=== PATIENT | male | born 1950 | race Caucasian/White ===

== ENCOUNTER → 2017-05-20 | Outpatient (CLI) | payer MEDICARE, OTHER ==
[~2017-05-20] MED LIST: ACE325; ASPI-1441; BACDS PO; CAR6.25 PO; CLOP75TA PO; DOC100; FAMO10TA86; HYDR-2966 PO; ISOS20TA64 PO; LISI-357 PO; PANT40TA65 PO; PER; POTA-53 PO; PRAS10TA4; SIL20T TOP; SIMV-54 PO
[2017-05-20 12:53] LABS: LDL CHOLESTEROL 44 mg/dl
== END ==
LOC: LAB 11:55
PROVIDERS: ATTEND Internal Medicine Cardiovascular Disease
DX: I25.10 Atherosclerotic heart disease of native coronary artery without angina pectoris (principal)
CPT/HCPCS: 36415; 82040; 82247; 82248; 82310; 82374; 82435; 82465; 82565; 82947; 83718; 84075; 84132; 84155; 84295; 84450; 84460; 84478; 84520

== ENCOUNTER → 2017-05-22 | Outpatient (CLI) | payer MEDICARE, OTHER ==
--- NOTE | 2017-05-23 18:12 | RADIOLOGY IMAGING REPORT ---
FACILITY: [facility] PATIENT NAME: ERVIN MARIEE : [id number] MR: [id number] V: [id number] EXAM DATE: ORDERING PHYSICIAN: PAMELA ROBERSON TECHNOLOGIST: Aziza Hernandez EXAMINATION:TWO-DIMENSIONAL ECHOCARDIOGRAPH`1 REASON:CAD 2D Measurements (normal values in centimeters) LV endLV endRV endVent.LV PostAorticLeftPercent DiastolicSystolicDiastolicSeptumWallRootAtriumShortening (3.5-5.7)(0.9-2.6)(0.6-1.1)(0.6-1.1)(2.0-3.7)(1.9-4.0)(25-35%) [id number] STROKE VOLUME: 47.8ml ESTIMATED EJECTION FRACTION:70% PARASTERNAL LONG AXIS: Overall left ventricular systolic function does appear to be normal. Mild concentric left ventricular thickening is noted but no evidence for any outflow obstruction. Color examination of the valves reveals a trace of aortic insufficiency as well as a trace of mitral insufficiency present. No wall motion abnormalities are noted. PARASTERNAL SHORT AXIS: Overall left ventricular function appears to be normal with no wall motion abnormalities. Mild concentric left ventricular thickening but no evidence for any outflow obstruction. The aortic valve is trileaflet in configuration & appears to open normally. It has minimal aortic sclerosis. Color examination of the valves reveals a trace of aortic insufficiency & a trace of tricuspid insufficiency present. APICAL FOUR AND TWO CHAMBER: Normal left ventricular ejection fraction. Right ventricle also appears to contract normally & the TAPSE is measured at 2.5 which is within normal ranges. Aortic valve area & mitral valve area both measure within normal ranges at 4.7 & 3.0cm2 respectively. Left atrial & right atrial volumes measure within normal ranges at 30 & 17ml/m2. Trace of mitral insufficiency is noted. A trace of tricuspid insufficiency is noted. The tricuspid regurgitation Vmax is measured at 2.1m/sec. Estimated right atrial pressure is 8mm Hg. SUBCOSTAL VIEW: No pericardial effusion was noted. No atrioseptal or ventriculoseptal defects were appreciated. The ascending aorta is slightly enlarged at 4.2cm. Doppler examination of the mitral valve in diastole does reveal the A wave > E wave. OVERALL IMPRESSION: 1. Normal left ventricular ejection fraction of 70% with a Grade 1/4 decrease in diastolic function. 2. Mild concentric left ventricular thickening with no evidence for any outflow tract obstruction. 3. Chamber sizes are normal. The right ventricle is the upper range of normal in size. The ascending aorta is slightly aneurismal at 4.2cm. 4. A trileaflet aortic valve with mild aortic sclerosis but no stenosis & a trace of aortic insufficiency. 5. A trace of mitral & tricuspid insufficiency. No stenosis of the valves was noted. Estimated right ventricular systolic pressure is within normal range at 26mm Hg. 6. No wall motion abnormalities were noted & the right ventricle also appears to contract normally with a normal TAPSE measurement. Dictated by: Samara Shine M.D. on 05/22/2017 at 20:32 Transcribed by: DAREK on 05/23/2017 at 11:17 Approved by: Samara Shine M.D. on 05/23/2017 at 18:10 [facility]
== END ==
LOC: RAD 00:40
PROVIDERS: ATTEND Internal Medicine Cardiovascular Disease
DX: I50.31 Acute diastolic (congestive) heart failure (principal); I25.10 Atherosclerotic heart disease of native coronary artery without angina pectoris; I35.1 Nonrheumatic aortic (valve) insufficiency; I34.0 Nonrheumatic mitral (valve) insufficiency; I07.1 Rheumatic tricuspid insufficiency
CPT/HCPCS: 93306

== ENCOUNTER → 2017-06-02 | Outpatient (CLI) | payer MEDICARE, OTHER ==
[~2017-06-02] MED LIST changes: +IOPAMIDOL 76% 100 ML INFUS BTL 100 ML ONE; +NS 0.9% 20 ML SDV 60 ML ONE
--- NOTE | 2017-06-02 11:53 | RADIOLOGY IMAGING REPORT ---
FACILITY: [facility] PATIENT NAME: Kenny Garcia : 1950 MR: [id number] V: [id number] EXAM DATE: ORDERING PHYSICIAN: PAMELA ROBERSON TECHNOLOGIST: Location: [facility] [place] Patient: Kenny Garcia : 1950 Visit/Account:[id number] Date of Sevice: 06/02/2017 CTA CHEST ABD W WO CONT CTA of the chest with and without contrast: COMPARISONS: None. ADDITIONAL PERTINENT HISTORY: Thoracic aortic aneurysm without rupture TECHNIQUE: Multiple axial images are obtained from the lung apices through the upper abdomen during t he IV administration of contrast material. 2-D and 3-D reformatted images were obtained off the axial source data. One of the following dose optimization techniques was utilized in the performance of t his exam: Automated exposure control; adjustment of the mA and/or kV according to the patient's size; or use of an iterative reconstruction technique. Specific details can be referenced in the [facility]'s radiology CT exam operational policy. CONTRAST: 100mL of Isovue-370 FINDINGS: Lung parenchyma: Negative. Pleural spaces: Negative. Heart, mediastinum and marlin: Negative. Cardiopulmonary vasculature: There is mild aneurysmal dilatation of the ascending aorta measuring 4.1 x 4.4 cm. No aneurysmal dilatation of the thoracic aortic arch or the descending thoracic aorta. C alcified atherosclerotic plaque involving the thoracic aorta. No significant narrowing at the origin s of the great vessels. Central airways: Negative Thyroid, supra- clavicular, axillary regions: Negative. Surrounding soft tissues: Negative. Osseous structures: Spondylitic change involving the thoracic spine. No acute appearing bony abnorma lities. IMPRESSION: 1. Mild aneurysmal dilatation involving the ascending aorta. 2. Mild atherosclerotic disease involving the thoracic aortic arch and descending thoracic aorta wit hout aneurysm in these regions. 3. No acute intrathoracic process. CTA ABD W WO CONT COMPARISON: None. ADDITIONAL PERTINENT HISTORY: Thoracic aortic aneurysm Technique: Multiple axial images were obtained from the lung bases through the iliac crest before and after the IV administration of IV contrast. Study was optimized for evaluation of the abdominal aor ta. 2-D and 3-D reformatted images were obtained off the axial source data. One of the following do se optimization techniques was utilized in the performance of this exam: Automated exposure control; adjustment of the mA and/or kV according to the patient's size; or use of an iterative reconstructio n technique. Specific details can be referenced in the facility's radiology CT exam operational lorrie cy. Contrast: 100 ml of Isovue-370 FINDINGS: Lung bases: Negative. Free air and free fluid: None. Liver: Fatty infiltration of the liver. Within the left lobe of the liver there are 2 low-attenuatio n regions more anterior region measuring 2.5 x 2.9 cm. The more posterior region measures 1.9 x 2.0 cm. These may represent underlying hemangiomas or simple cysts. Spleen: Negative. Kidneys and proximal ureters: Mild nonspecific stranding about both kidneys. Small simple appearing cyst involving the midportion of the right kidney. Region of calcification along the posterior mumtaz n of the lower pole of the right kidney may represent a small previous hematoma. This has benign cynthia racteristics. Adrenal glands: Negative. Pancreas: Negative. Gallbladder: Findings of small partially calcified gallstones near the fundus of the gallbladder. Visualized bowel and mesentery: Negative.. Lymph node assessment: Negative. Retroperitoneum: Negative. Abdominal vasculature: Mild calcified and noncalcified apices right plaque of the abdominal aorta as well as calcified referenced right plaque at the origins of the renal arteries and along the proximal portions of the superior mesenteric artery and the celiac artery. No significant stenosis noted. N o aneurysmal dilatation of the a dominal aorta. Surrounding soft tissues: Negative. Osseous structures: Mild spondylitic change involving the thoracolumbar spine. No acute appearing daniela ny abnormalities. IMPRESSION:1. Atherosclerotic disease of the abdominal aorta and its major branches. 2. No significant aneurysmal dilatation noted along the abdominal aorta. 3. Underlying cholelithiasis without CT evidence of acute cholecystitis. 4. Fatty infiltration of the liver with findings of either hemangiomas or simple appearing cysts inv olving the left lobe of the liver. Report Dictated By: Red Dhillon MD at 06/02/2017 11:34 AM Report E-Signed By: Red Dhillon MD at 06/02/2017 11:49 AM WSN:[email or web address]
== END ==
LOC: RAD 02:35
PROVIDERS: ATTEND Internal Medicine Cardiovascular Disease
DX: I71.2 Thoracic aortic aneurysm, without rupture (principal); I70.0 Atherosclerosis of aorta; K80.20 Calculus of gallbladder without cholecystitis without obstruction; K76.0 Fatty (change of) liver, not elsewhere classified
CPT/HCPCS: 71275; 74175; J7050; Q9967

== ENCOUNTER 2017-09-03 00:11 | Inpatient (IN) | payer OTHER, MEDICARE ==
[2017-08-21 11:30] LABS: PLATELET COUNT, AUTOMATED 148 K/uL (150-450)
--- NOTE | 2017-08-21 11:36 | EKG ---
FACILITY: [facility] - [place] PATIENT NAME: ERVIN MARIEE : [id number] MR: [id number] V: [id number] EXAM DATE: ORDERING PHYSICIAN: SHANTHI WONG TECHNOLOGIST: ROXY Purcell Reason : PREOP-BACK Blood Pressure : / mmHG Vent. Rate : 060 BPM Atrial Rate : 060 BPM P-R Int : 208 ms QRS Dur : 084 ms QT Int : 452 ms P-R-T Axes : 025 068 048 degrees QTc Int : 452 ms Normal sinus rhythm Normal ECG When compared with ECG of 09-JAN-2014 17:34, Nonspecific T wave abnormality no longer evident in Inferior leads Confirmed by SHANTHI ZIMMER ([id number]) on 08/22/2017 11:22:49 AM Referred By: AZALEA Confirmed By:SHANTHI ZIMMER
[~2017-09-03] VITALS: Ht 180.3 cm; Wt 87.1 kg
[~2017-09-03 00:11] MED LIST changes: +ASPI-757 PO; +ATOR20TA65 PO; +CELE-1 PO; +ESOM40CA42 PO; +GABA-549 PO; -IOPAMIDOL 76% 100 ML INFUS BTL 100 ML ONE; -NS 0.9% 20 ML SDV 60 ML ONE
[2017-09-03 05:40] VITALS: BP 136/87
[2017-09-03] MEDS ORDERED: DIAZEPAM 10 MG TAB PO ONE (05:45)
[2017-09-03] MEDS: GABAPENTIN 300 MG CAP PO ONE ×2 (06:22→06:31)
[2017-09-03] MEDS ORDERED: REMIFENTANIL HCL 1 MG VIAL ONE ×2 (06:23→08:37)
[2017-09-03] MEDS ORDERED: HYDROmorphone HCL 2 MG/ML SDV ONE ×2 (09:02→10:42)
[2017-09-03] MEDS ORDERED: ONDANSETRON 4 MG/2 ML VIAL ONE (09:06)
[2017-09-03] MEDS ORDERED: DEXAMETHASONE SOD PHOS 10MG/ML ONE (09:06)
[2017-09-03] MEDS ORDERED: SUCCINYLCHOL CHL 200MG/10ML VL ONE (09:06)
[2017-09-03] MEDS ORDERED: PROPOFOL EMUL(*) 10MG/ML 20 ML 180 ML ONE (09:06)
[2017-09-03] MEDS ORDERED: PHENYLEPHRINE 10 MG/1 ML VIAL ONE (09:06)
[2017-09-03] MEDS ORDERED: LIDOCAINE MPF 1% 5 ML VIAL ONE (09:06)
[2017-09-03] MEDS ORDERED: GLYCOPYRROLATE 0.2MG/ML 1 ML INJ ONE (09:06)
[2017-09-03] MEDS ORDERED: fentaNYL CITR 100 MCG/2 ML AMP ONE ×2 (09:47→10:03)
[2017-09-03] MEDS ORDERED: fentaNYL CITR 250 MCG/5 ML AMP ONE (10:08)
[2017-09-03] MEDS ORDERED: ACETAMINOPHEN(*)1000 MG/100 ML 100 ML IVPB PRN (10:20)
[2017-09-03] MEDS ORDERED: ceFAZolin(*) 2GM/D5W 50ML 50 ML IVPB ONE (10:20)
[2017-09-03] MEDS ORDERED: LR(*) 1000 ML BAG 1,000 ML IV PRN (10:20)
[2017-09-03] MEDS ORDERED: ONDANSETRON 4 MG/2 ML VIAL IVP PRN (10:20)
[2017-09-03] MEDS ORDERED: DIAZEPAM 5 MG TAB PO PRN (10:20)
[2017-09-03] MEDS ORDERED: diphenhydrAMINE 25 MG CAP PO PRN (10:20)
[2017-09-03] MEDS ORDERED: BISACODYL 10 MG SUPP PR PRN (10:20)
[2017-09-03] MEDS ORDERED: BENZOCAINE/MENTHOL 1 EACH LOZG PO PRN (10:20)
[2017-09-03] MEDS ORDERED: MAGNESIUM HYDROXIDE* 30ML UDCP PO PRN (10:20)
[2017-09-03] MEDS ORDERED: ACETAMINOPHEN 500 MG TAB PO PRN (10:20)
[2017-09-03] MEDS ORDERED: FLUSH 10 ML SYR IVP PRN (10:20)
--- NOTE | 2017-09-03 10:22 | RADIOLOGY IMAGING REPORT ---
FACILITY: [facility] PATIENT NAME: Kenny Garcia : 1950 MR: [id number] V: [id number] EXAM DATE: ORDERING PHYSICIAN: MICHELLE TRISTAN TECHNOLOGIST: Location: [facility] [place] Patient: Kenny Garcia : 1950 Visit/Account:[id number] Date of Sevice: 09/03/2017 Lumbar spine, nine views. HISTORY: L4-5 disc herniation, fusion. COMPARISON: Lumbar spine CT scan 08/20/2016. The lowest segmented vertebra is designated L5. Several images demonstrate an interspinous metal pro sthesis at L5-S1. Other images demonstrate placement pedicular screws at L4 and L5. The tips of the screws project on the L4 and L5 vertebral bodies. Other image demonstrates the tip of a metal instr ument at L4-5. Other images demonstrate placement of an interbody metal prosthesis at L4-5. A dilip ectomy is present at L4-5. Small to moderate-sized endplate osteophytes and moderate to severe loss of disc height are present at L3-4, L4-5, and L5-S1. The abdominal aorta and iliac arteries are calc ified and mildly ectatic. FLUOROSCOPY TIME: 121 seconds. IMPRESSION: Metal hardware placement as described above. Report Dictated By: Bhavesh Dwyer MD at 09/03/2017 10:12 AM Report E-Signed By: Bhavesh Dwyer MD at 09/03/2017 10:17 AM WSN:[email or web address]
[2017-09-03] MEDS ORDERED: ePHEDrine 25 MG/5 ML DISP.SYR IVP ONE (10:42)
[2017-09-03] MEDS ORDERED: NORMOSOL R SOLN(*) 1000 ML BAG 1,000 ML IV PRN (11:20)
[2017-09-03] MEDS ORDERED: LIDOCAINE/SOD BICARB 8.4% SYR ID ONE (11:20)
[2017-09-03] MEDS ORDERED: MIDAZOLAM 2 MG/2 ML VIAL IVP PRN (11:20)
[2017-09-03 11:32] VITALS: BP 94/67
[2017-09-03 11:39] VITALS: BP 95/66
[2017-09-03] MEDS: oxyCODONE HCL 5 MG CAP PO PRN ×4 (11:48→20:41)
[2017-09-03] MEDS ORDERED: ATOR40TA69 PO (12:11)
[2017-09-03] MEDS ORDERED: GABA-551 PO (12:11)
[2017-09-03] MEDS ORDERED: LISI20TA29 PO (12:11)
[2017-09-03] MEDS: HYDROmorphone HCL 2 MG/ML SDV IVP PRN ×3 (12:22→17:07)
--- NOTE | 2017-09-03 12:39 | Hospitalist Consultation ---
History of Present Illness Requesting Physician Dr. Ratliff Reason for Consult Medical Management Chief Complaint s/p lumbar fusion History of Present Illness He was admitted s/p lumbar fusion. It is reported the surgery went well and without complication. History Problems: (1) Hypertension Status: Chronic (2) Hyperlipidemia Status: Chronic (3) CAD (coronary artery disease) Status: Chronic (4) ME (myocardial infarction) Home Meds Reported Medications Atorvastatin Calcium (ATORVASTATIN CALCIUM) 40 Mg Tablet, 1 TAB PO QDAY, TAB 09/03/17 Lisinopril (LISINOPRIL) 20 Mg Tablet, 20 MG PO QDAY, TAB 09/03/17 Gabapentin (GABAPENTIN) 400 Mg Capsule, 400 MG PO TID, CAPSULE 09/03/17 Aspirin (ASPIRIN) 325 Mg Tablet, 0.5 TAB PO QDAY, TAB 08/26/17 Esomeprazole Magnesium (NEXIUM) 40 Mg Capsule.dr, 1 CAP PO QAM, CAP 08/26/17 Celecoxib (CELEBREX) 200 Mg Capsule, 200 MG PO QDAY, CAPSULE 08/26/17 Clopidogrel Bisulfate (CLOPIDOGREL) 75 Mg Tablet, 1 TAB PO QDAY, TAB TAKE ONE TABLET BY MOUTH EVERY DAY 01/09/14 Hydrochlorothiazide (HYDROCHLOROTHIAZIDE) 25 Mg Tablet, 0.5 TAB PO QDAY TAKE ONE TABLET BY MOUTH EVERY DAY 01/09/14 Isosorbide Mononitrate (ISOSORBIDE MONONITRATE) 20 Mg Tablet, 30 MG PO DAILY 01/09/14 Oxycodone/Acetaminophen (OXYCODONE/ACETAMINOPHEN 5MG/325 MG) 5 Mg/325 Mg Tab, 7.5 MG QID 07/16/11 Carvedilol (Coreg) 6.25 Mg Tab, 12.5 MG PO BID 07/16/11 Discontinued Reported Medications Atorvastatin Calcium (ATORVASTATIN CALCIUM) 20 Mg Tablet, 1 TAB PO QDAY, TAB 08/26/17 Gabapentin (GABAPENTIN) 300 Mg Capsule, 400 MG PO TID, CAPSULE 08/26/17 Simvastatin (SIMVASTATIN) 40 Mg Tablet, 40 MG PO HS, TAB 01/09/14 Lisinopril (Lisinopril) 5 Mg Tablet, 20 MG PO DAILY 07/16/11 Allergies: Coded Allergies: No Known Allergies (Verified Allergy, Mild, 08/20/16) zolpidem (Verified Adverse Reaction, Mild, SLEEP WALKS, 08/26/17) Patient History: FH: heart disease MOTHER Hx Smoking: No (CHEWS 1 CAN EVERY 6-7 DAYS) Smoking Status: Never Smoker Caffeine Intake: Coffee Caffeine/Cups Per Day: 2 CPD Hx Alcohol Use: Yes (NIGHTLY DRINK) Alcohol Used: Liquor Hx Substance Use Disorder: No Social Drug Use: Never Review of Systems All Systems Reviewed/Normal: Yes, Except as Noted Musculoskeletal: Pain (back pain from surgery) Exam Vital Signs Vital Signs Date Time Temp Pulse Resp B/P (MAP) Pulse Ox O2 Delivery O2 Flow Rate FiO2 09/03/17 11:39 18 95/66 (76) 90 Nasal Cannula 2.0 09/03/17 11:32 97.1 58 General Appearance: Alert, Awake, No Acute Distress, Afebrile Neuro: No Gross deficits Cardiovascular: Regular Rate and Rhythm Respiratory: No Respiratory Distress, Clear to Auscultation GI: Abd Soft and Non-Tender Psych: Alert & Oriented X3, Appropriate Mood & Affect Assessment and Plan Problems: (1) S/P lumbar fusion Status: Acute Assessment & Plan: Followed by Dr. Ratliff. (2) Hypertension Status: Chronic Assessment & Plan: He is on chronic treatment with Lisinopril, Hydrochlorothiazide, and Coreg. The lisinopril and coreg have been restarted with hold parameters. (3) Hyperlipidemia Status: Chronic Assessment & Plan: He is on chronic treatment with Atorvastatin. (4) CAD (coronary artery disease) Status: Chronic Assessment & Plan: He has a history of two cardiac stents. He is on chronic treatment with Imdur, Plavix, and Aspirin. He did stop his Plavix 10 prior to surgery, but he did continue Aspirin. We will continue to hold Plavix, until we get approval from Dr. Ratliff to restart. We will continue Aspirin and Imdur. Venous Thromboembolism Antithrombotics Is Pt On Any Antithrombotics?: No Problem Qualifiers (1) Hypertension: Hypertension type: essential hypertension Qualified Codes: I10 - Essential ( primary) hypertension SELMA ENGLE MATERIALS MANAGEMENT SUPERVISOR September 03, 2017 12:39
[2017-09-03] MEDS: GABAPENTIN(*) 300 MG CAP 300 MG, GABAPENTIN(*) 100 MG CAP 100 MG PO SCH ×2 (13:54→20:43)
[2017-09-03] MEDS ORDERED: NON-FORMULARY MEDICATION MISCELL (Gabapentin 400 MG) PO SCH (14:00)
--- NOTE | 2017-09-03 14:22 | OPERATIVE REPORT 1 ---
EVENT DATE: September 03, 2017 SURGEON: Jf Ratliff MD ANESTHESIOLOGIST: Altagracia Barrios MD ANESTHESIA: General endotracheal VALIDATION MANAGER: MELODY Castle PREOPERATIVE DIAGNOSIS Right L4 radiculopathy with L4-L5 spinal stenosis and L4-L5 foraminal stenosis. POSTOPERATIVE DIAGNOSIS Right L4 radiculopathy with L4-L5 spinal stenosis and L4-L5 foraminal stenosis. PROCEDURE PERFORMED L4-L5 minimally invasive transforaminal lumbar interbody fusion. IV FLUIDS 2100 mL. ESTIMATED BLOOD LOSS 60 mL. IMPLANTS 6.5 mm x 45 mm Reline pedicle screws from [employer] x four. 5.5 mm x 45 mm lordotic Prevent rods from [employer] x two, 5.5 mm locking screws from [employer] x four and an 11 mm x 35 mm curvilinear 10 mm tall lordotic interbody implant from [employer]. SPECIMENS None. DRAINS None. COMPLICATIONS None. DISPOSITION Postanesthesia care unit. INDICATIONS FOR SURGERY Mr. Garcia is a 67-year-old gentleman who presented to my clinic with a long history of back problems. He had undergone placement of CoFlex devices at L4- L5 and L5-S1 in the past and had some improvement with those. Ultimately, however, they removed the CoFlex device at L4-L5 and performed a laminectomy. He had some relief but then had a return of significant L4 distribution radiating pain, numbness and tingling as well as weakness in the right lower extremity. He failed physical therapy and medications and ultimately underwent a right L4 nerve root injection, which gave him excellent, albeit temporary relief. His physical examination was normal, but he had an MRI that showed severe foraminal stenosis, right greater than left, at the L4-L5 level. Secondary to ongoing symptoms and failure nonsurgical treatment, Mr. Garcia was offered a right-sided approach, L4-L5 minimally invasive transforaminal lumbar interbody fusion to open up the foramen and decompress that L4 nerve root on the right. Prior to surgery, Mr. Garcia was advised of potential medical and surgical complications relating to surgery. These include bleeding, infection, damage to surrounding structures, persistent and/or worsening pain, nerve root injury, spinal fluid leak, infection, meningitis, , blindness, sexual dysfunction, autonomic nervous system dysfunction and other unforeseen medical and surgical complications. An understanding that spinal surgery is more predictive at improving extremity discomfort than axial spine pain was stressed. DESCRIPTION OF PROCEDURE On the date of surgery, the patient was met in the preoperative hold area, and all questions were answered. The operative site was identified and marked by myself. The patient was brought in good condition to the operating room, and after succumbing to anesthesia, was placed in the prone position on the Leeroy table. All bony protuberances and soft tissues were well padded in the standard fashion. Care was taken to maintain appropriate perfusion pressures during anesthesia. Preoperative antibiotics were administered according to the appropriate timing schedule. At the conclusion of the procedure, sponge and needle count were correct x two. Final time out was undertaken by members of the operating team to confirm correct patient, correct levels and correct surgery. The fluoroscopy unit was used to sendy the lateral borders of the L4 and L5 pedicles as well as the midpoint of those pedicles in the axial plane. The skin was then prepped and draped in the standard sterile orthopedic fashion. Incisions were made in the paramedian lower back for Adelita style approaches bilaterally. Sharp dissection was taken down to the lumbodorsal fascia, which was slit longitudinally. Blunt dissection was then carried out, splitting the interval between longissimus and multifidus muscles bilaterally, and coming down upon the appropriate points for starting the pedicle screws. Under fluoroscopic guidance, percutaneous pedicle screw placement was performed. Jamshidi needles were placed at the 9 o'clock position on the left side, and at the 3 o'clock position on the right side. They were then advanced through the pedicles under fluoroscopic guidance bilaterally. The trocars were withdrawn, and the guidewires were then placed. AP and lateral views confirmed appropriate placement of guidewires in bilateral pedicles at L4 and L5. Under lateral fluoroscopic guidance, we then tapped all four pedicles and tested the taps with neurophysiologic monitoring. They all tested above 10 mA. We then placed 6.5 mm x 45 mm screws with towers on the left, and with 60 mm retractors blades on the right. Screws were tested and found to all test much higher, all testing higher than 20 mA. The wires were all withdrawn, and attention was turned to the facetectomy. The self-retaining retractor was distracted on the right side, and the medial blade placed. This afforded us acces to the facet joint on that side as well as the L4 lamina. Facetectomy was performed utilizing an osteotome to provide us access to the transforaminal space. Care was taken to avoid osteotomizing the pedicle above or below. Hemostasis was obtained using bipolar cautery, and the disk space was identified. An annulotomy was performed with the annulotomy knife, and then a discectomy was performed using a combination of curettes, ashly and pituitary rongeurs to clear the disk space and the end plates of all disk and cartilaginous remnant. Once this was accomplished, a 10 mm trial was inserted and found to be the correct size. Under fluoroscopic guidance we then placed a combination of cancellous chips and demineralized bone matrix in the anterior disk space, and then inserted a 10 mm x 35 mm x 11 mm lordotic interbody implant into the interspace. This was rotated into perfect position, and AP and lateral views confirmed excellent positioning of the interbody device. Self retaining retractor was then removed, and the wounds irrigated with copious sterile saline solution. The caliper was used to measure the distance between the screw heads, and ultimately we chose 45 mm long rods. Retractor blades were removed from the screw shanks on the right and towers placed. Percutaneous technique was used to place the connecting rods, and then the locking caps were applied. The superior locking caps were tightened, and compression was applied across the construct bilaterally prior to tightening the L5 locking cap. Final tightening device was then used with the counter torque instrument to final tighten all locking caps. The towers were then removed, and AP and lateral images were obtained showing excellent positioning of all of the instrumentation. The wounds were again irrigated with copious sterile saline solution and then closed using interrupted sutures for the deep fascia and inverted interrupted sutures for the subcutaneous tissue, and then a running subcuticular skin stitch. Sponge and needle counts were correct x two. POSTOPERATIVE CARE PLAN Mr. Garcia will remain in the hospital until he meets discharge criteria. He could go home as soon as today, but will likely stay one night prior to discharge home. He will follow up in my clinic in two weeks time for wound check and examination. RODRIGO
[2017-09-03] MEDS: ceFAZolin(*) 2GM/D5W 50ML 50 ML IVPB SCH ×2 (16:50→22:32)
[2017-09-03 19:40] VITALS: BP 117/70
[2017-09-03] MEDS: CARVEDILOL 6.25 MG TAB PO SCH (20:42)
[2017-09-03] MEDS: DOCUSATE SODIUM 100 MG CAP PO SCH (20:43)
[2017-09-03 22:36] VITALS: BP 128/84
[2017-09-03] MEDS: APAP/HYDROCODONE 325/5 TAB PO PRN (22:41)
[2017-09-04] MEDS: APAP/HYDROCODONE 325/5 TAB PO PRN ×2 (03:25→08:11)
[2017-09-04] MEDS: ceFAZolin(*) 2GM/D5W 50ML 50 ML IVPB SCH (06:22)
[2017-09-04] MEDS: CARVEDILOL 6.25 MG TAB PO SCH (08:09)
[2017-09-04 08:10] VITALS: BP 138/87
[2017-09-04] MEDS: DOCUSATE SODIUM 100 MG CAP PO SCH (08:10)
[2017-09-04] MEDS: GABAPENTIN(*) 300 MG CAP 300 MG, GABAPENTIN(*) 100 MG CAP 100 MG PO SCH (08:10)
[2017-09-04] MEDS ORDERED: ATORVASTATIN 40 MG TAB PO SCH (09:00)
[2017-09-04] MEDS ORDERED: PANTOPRAZOLE SOD 40 MG TABEC PO SCH (09:00)
[2017-09-04] MEDS ORDERED: ASPIRIN 81 MG ENTERIC COATED PO SCH (09:00)
[2017-09-04] MEDS ORDERED: LISINOPRIL 20 MG TAB PO SCH (09:00)
[2017-09-04] MEDS ORDERED: ISOSORBIDE MONONITR 30MG TABCR PO SCH (09:00)
[2017-09-04] MEDS ORDERED: LOR5/325 PO (09:30)
[2017-09-04] MEDS ORDERED: DIA5 PO (09:30)
[2017-09-04] MEDS ORDERED: DOCU240C84 PO (09:32)
--- NOTE | 2017-09-04 10:36 | Hospitalist Progress Note ---
Subjective Progress Notes Subjective He has no concerns this morning. He states he is ready to go home. Patient Complains of: Cardiovascular: No: Chest Pain Respiratory: No: Shortness of Breath Physical Exam Vital Signs Date Time Temp Pulse Resp B/P (MAP) Pulse Ox O2 Delivery O2 Flow Rate FiO2 09/04/17 08:10 97 Nasal Cannula 2.0 09/04/17 08:10 98.2 64 16 138/87 (104) Intake and Output 09/05/17 01:00 Output Total 725 ml Balance -725 ml Output Urine Total 725 ml # Voids 3 General Appearance: Alert, Awake, No Acute Distress, Afebrile Neuro: No Gross deficits Cardiovascular: Regular Rate and Rhythm Respiratory: No Respiratory Distress, Clear to Auscultation GI: Soft and Non-Tender Psych: Alert & Oriented X3, Appropriate Mood & Affect Assessment and Plan Problems: (1) S/P lumbar fusion Status: Acute Assessment & Plan: Followed by Dr. Ratliff. (2) Hypertension Status: Chronic Assessment & Plan: He is on chronic treatment with Lisinopril, Hydrochlorothiazide, and Coreg. The lisinopril and coreg have been restarted with hold parameters. (3) Hyperlipidemia Status: Chronic Assessment & Plan: He is on chronic treatment with Atorvastatin. (4) CAD (coronary artery disease) Status: Chronic Assessment & Plan: He has a history of two cardiac stents. He is on chronic treatment with Imdur, Plavix, and Aspirin. He did stop his Plavix 10 prior to surgery, but he did continue Aspirin. We will restart Plavix, per Dr. Ratliff it is ok to restart today. He will continue Aspirin and Imdur. Exam Sepsis Risk: No Definite Risk Problem Qualifiers (1) Hypertension: Hypertension type: essential hypertension Qualified Codes: I10 - Essential ( primary) hypertension SELMA ENGLE FIELD MARKETING SPECIALIST September 04, 2017 10:36
== END 2017-09-04 11:55 | disposition home or self-care (01) | DRG 460 ==
LOC: OR 00:11 → OBSVTOIN 11:33 → MED 11:33 → INTOOBSV 11:33
PROVIDERS: ADMIT Orthopaedic Surgery; ATTEND Orthopaedic Surgery
PROC: 0ST20ZZ Resection of Lumbar Vertebral Disc, Open Approach (ICD-10-PCS; 2017-09-03)
PROC: 0SG04AJ Fusion of Lumbar Vertebral Joint with Interbody Fusion Device, Posterior Approach, Anterior Column, Percutaneous Endoscopic Approach (ICD-10-PCS; principal; 2017-09-03 07:06)
DX: M48.061 Spinal stenosis, lumbar region without neurogenic claudication (principal); M54.16 Radiculopathy, lumbar region; I10 Essential (primary) hypertension; I25.10 Atherosclerotic heart disease of native coronary artery without angina pectoris; K21.9 Gastro-esophageal reflux disease without esophagitis; E78.5 Hyperlipidemia, unspecified; F17.220 Nicotine dependence, chewing tobacco, uncomplicated; I25.2 Old myocardial infarction; Z95.5 Presence of coronary angioplasty implant and graft
CPT/HCPCS: 36415; 76000; 82040; 82247; 82310; 82374; 82435; 82565; 82947; 84075; 84132; 84155; 84295; 84450; 84460; 84520; 85025; 86850; 86900; 86901; 93005; 97161; C1713; J0131; J0330; J0690; J1100; J1170; J2001; J2370; J2405; J2704; J3010; J3490

== ENCOUNTER 2017-09-11 15:57 | Emergency (ER) | payer OTHER, MEDICARE ==
[~2017-09-11 15:57] MED LIST changes: +ATOR40TA69 PO; +DIA5 PO; +DOCU240C84 PO; +GABA-551 PO; +LISI20TA29 PO; +LOR5/325 PO
[2017-09-11] MEDS ORDERED: HYDROmorphone* 1 MG/ML 1 MG/ML ML IVP ONE ×2 (16:35→18:05)
[2017-09-11] MEDS ORDERED: NS(*) 0.9% 1000 ML BAG 1,000 ML IV ONE (16:35)
--- NOTE | 2017-09-11 16:53 | ER Report ---
History and Physical Time Seen By MD: 16:20 Hx. of Stated Complaint: HAD L4/L5 DISK SURGERY ON FRI. PAIN IN RIGHT LEG/FOOT, AROUND GROIN AREA HPI/ROS CHIEF COMPLAINT: Back pain HISTORY OF PRESENT ILLNESS: 67-year-old male patient presents to emergency room with complaint of back pain seems to radiate down the right leg. Patient states that he had surgery on September 03 on the lumbar spine. After which time he was doing well. He states the pain started yesterday and seemingly has gotten worse. States pain is located just on the right side. He states that the pain starts just above his tailbone. States that he is tender over the right lower leg. He denies having any numbness or tingling. Patient states he was unable to sleep at all last night due to the pain. Patient states that his pain is a 9 out of 10. He denies any injury to his back recently. Stating that he has not fallen or done anything to injure it further. REVIEW OF SYSTEMS: Respiratory: No cough, no dyspnea. Cardiovascular: No chest pain, no palpitations. Gastrointestinal: No vomiting, no abdominal pain. Musculoskeletal: As noted above Allergies: Coded Allergies: No Known Allergies (Verified Allergy, Mild, 09/11/17) zolpidem (Verified Adverse Reaction, Mild, SLEEP WALKS, 09/11/17) Home Meds Active Scripts Oxycodone Hcl (OXYCONTIN) 10 Mg Tab.er.12h, 10 MG PO BID, #14 TAB Prov:SANDRA RUANO [facility] 09/11/17 Reported Medications Docusate Calcium (SURFAK) 240 Mg Capsule, 240 MG PO DAILY, #9 CAPSULE 09/04/17 Hydrocodone Bit/Acetaminophen (HYDROCODON-ACETAMINOPHEN 5-325) 1 Each Tablet, 1- 2 TAB PO Q6H Y for PAIN, #49 TAB 09/04/17 Atorvastatin Calcium (ATORVASTATIN CALCIUM) 40 Mg Tablet, 1 TAB PO QDAY, TAB 09/03/17 Lisinopril (LISINOPRIL) 20 Mg Tablet, 20 MG PO QDAY, TAB 09/03/17 Gabapentin (GABAPENTIN) 400 Mg Capsule, 400 MG PO TID, CAPSULE 09/03/17 Aspirin (ASPIRIN) 325 Mg Tablet, 0.5 TAB PO QDAY, TAB 08/26/17 Esomeprazole Magnesium (NEXIUM) 40 Mg Capsule., 1 CAP PO QAM, CAP 08/26/17 Celecoxib (CELEBREX) 200 Mg Capsule, 200 MG PO QDAY, CAPSULE 08/26/17 Clopidogrel Bisulfate (CLOPIDOGREL) 75 Mg Tablet, 1 TAB PO QDAY, TAB TAKE ONE TABLET BY MOUTH EVERY DAY 01/09/14 Hydrochlorothiazide (HYDROCHLOROTHIAZIDE) 25 Mg Tablet, 0.5 TAB PO QDAY TAKE ONE TABLET BY MOUTH EVERY DAY 01/09/14 Isosorbide Mononitrate (ISOSORBIDE MONONITRATE) 20 Mg Tablet, 30 MG PO DAILY 01/09/14 Carvedilol (Coreg) 6.25 Mg Tab, 12.5 MG PO BID 07/16/11 Discontinued Reported Medications Diazepam (VALIUM) 5 Mg Tablet, 5 MG PO Q8H Y for MUSCLE SPASMS, #25 TAB 09/04/17 Oxycodone/Acetaminophen (OXYCODONE/ACETAMINOPHEN 5MG/325 MG) 5 Mg/325 Mg Tab, 7.5 MG QID 07/16/11 Past Medical/Surgical History Patient has a past medical history of hypertension, hyperlipidemia, reflux, back pain, alcohol use. Patient has surgical history of coronary stent, knee surgery, back surgery 2. Reviewed Nurses Notes: Yes Hx Smoking: No (CHEWS 1 CAN EVERY 6-7 DAYS) Smoking Status: Never Smoker Hx Substance Use Disorder: No Hx Alcohol Use: Yes (NIGHTLY DRINK) Constitutional Vital Sign - Last 24 Hours 09/11/17 09/11/17 09/11/17 09/11/17 16:05 16:06 16:12 16:27 Temp 98.9 Pulse 77 72 75 Resp 16 B/P (MAP) 183/110 183/110 (134) Pulse Ox 90 95 97 O2 Delivery Room Air 09/11/17 09/11/17 09/11/17 09/11/17 16:30 16:42 16:54 16:57 Pulse ??? 70 B/P (MAP) 130/99 (109) 167/94 (118) Pulse Ox 97 95 09/11/17 09/11/17 09/11/17 09/11/17 17:02 17:17 17:30 17:32 Pulse 72 ??? 80 B/P (MAP) 160/118 (132) Pulse Ox 94 95 09/11/17 09/11/17 09/11/17 09/11/17 17:47 18:00 18:02 18:17 Pulse ? B/P (MAP) 178/108 (131) Physical Exam General Appearance: The patient is alert, has no immediate need for airway protection and no current signs of toxicity. Respiratory: Chest is non tender, lungs are clear to auscultation. Cardiac: regular rate and rhythm Gastrointestinal: Abdomen is soft and non tender, no masses, bowel sounds normal. Musculoskeletal: Neck: Neck is supple and non tender. Extremities have full range of motion and are non tender. Back: Patient does have some tenderness to the right side of the low back, it is right around the incision on the right side. There is some swelling noted there. There is no erythema, no drainage. Patient does have tenderness to the anterior right lower leg. Skin: No rashes or lesions. DIFFERENTIAL DIAGNOSIS: After history and physical exam differential diagnosis was considered for postsurgical pain, postsurgical infection, shifting of hardware. Medical Decision Making Data Points Result Diagram: 09/11/17 1647 09/11/17 1647 Laboratory Hematology Test 09/11/17 16:47 09/11/17 18:12 Red Blood Count 4.26 M/uL (4.00-5.60) Mean Corpuscular Volume 95.9 fL (80.0-96.0) Mean Corpuscular Hemoglobin 34.1 pg (26.0-33.0) Mean Corpuscular Hemoglobin Concent 35.6 g/dL (32.0-36.0) Red Cell Distribution Width 13.3 % (11.5-14.5) Mean Platelet Volume 8.4 fL (7.2-11.1) Neutrophils (%) (Auto) 74.8 % (39.4-72.5) Lymphocytes (%) (Auto) 13.6 % (17.6-49.6) Monocytes (%) (Auto) 9.4 % (4.1-12.4) Eosinophils (%) (Auto) 1.6 % (0.4-6.7) Basophils (%) (Auto) 0.6 % (0.3-1.4) Nucleated RBC Relative Count (auto) 0.0 /100WBC Neutrophils # (Auto) 4.7 K/uL (2.0-7.4) Lymphocytes # (Auto) 0.9 K/uL (1.3-3.6) Monocytes # (Auto) 0.6 K/uL (0.3-1.0) Eosinophils # (Auto) 0.1 K/uL (0.0-0.5) Basophils # (Auto) 0.0 K/uL (0.0-0.1) Nucleated RBC Absolute Count (auto) 0.00 K/uL Sodium Level 137 mmol/L (137-145) Potassium Level 3.8 mmol/L (3.5-5.0) Chloride Level 96 mmol/L (98-107) Carbon Dioxide Level 27 mmol/L (22-30) Blood Urea Nitrogen 14 mg/dl (9-21) Creatinine 0.80 mg/dl (0.66-1.25) Glomerular Filtration Rate Calc > 60.0 Random Glucose 91 mg/dl (75-110) Lactate 1.1 mmol/L (0.7-2.1) Calcium Level 9.5 mg/dl (8.4-10.2) Total Bilirubin 1.3 mg/dl (0.2-1.3) Aspartate Amino Transf (AST/SGOT) 35 U/L (0-35) Alanine Aminotransferase (ALT/SGPT) 25 U/L (0-56) Alkaline Phosphatase 71 U/L (0-126) C-Reactive Protein 1.5 mg/dl (<1.0) Total Protein 6.8 gm/dl (6.3-8.2) Albumin 4.0 g/dl (3.5-5.0) Urine Color Yellow Urine Clarity Clear Urine pH 5.0 pH (4.8-9.5) Urine Specific Harrington 1.018 Urine Protein Negative mg/dL (NEGATIVE) Urine Glucose (UA) Negative mg/dL (NEGATIVE) Urine Ketones Trace mg/dL (NEGATIVE) Urine Blood Negative (NEGATIVE) Urine Nitrite Negative (NEGATIVE) Urine Bilirubin Negative (NEGATIVE) Urine Urobilinogen 2.0 mg/dL (0.2-1.9) Urine Leukocyte Esterase Negative (NEGATIVE) Urine RBC 1 /HPF (0-2/HPF) Urine WBC 1 /HPF (0-5/HPF) Urine Squamous Epithelial Cells None /LPF (</=FEW) Urine Bacteria Negative /HPF (NONE-FEW) Urine Mucus Few /HPF (NONE-FEW) Chemistry Test 09/11/17 16:47 09/11/17 18:12 White Blood Count 6.3 k/uL (4.5-11.0) Red Blood Count 4.26 M/uL (4.00-5.60) Hemoglobin 14.5 g/dL (14.0-18.0) Hematocrit 40.9 % (42.0-52.0) Mean Corpuscular Volume 95.9 fL (80.0-96.0) Mean Corpuscular Hemoglobin 34.1 pg (26.0-33.0) Mean Corpuscular Hemoglobin Concent 35.6 g/dL (32.0-36.0) Red Cell Distribution Width 13.3 % (11.5-14.5) Platelet Count 172 K/uL (150-450) Mean Platelet Volume 8.4 fL (7.2-11.1) Neutrophils (%) (Auto) 74.8 % (39.4-72.5) Lymphocytes (%) (Auto) 13.6 % (17.6-49.6) Monocytes (%) (Auto) 9.4 % (4.1-12.4) Eosinophils (%) (Auto) 1.6 % (0.4-6.7) Basophils (%) (Auto) 0.6 % (0.3-1.4) Nucleated RBC Relative Count (auto) 0.0 /100WBC Neutrophils # (Auto) 4.7 K/uL (2.0-7.4) Lymphocytes # (Auto) 0.9 K/uL (1.3-3.6) Monocytes # (Auto) 0.6 K/uL (0.3-1.0) Eosinophils # (Auto) 0.1 K/uL (0.0-0.5) Basophils # (Auto) 0.0 K/uL (0.0-0.1) Nucleated RBC Absolute Count (auto) 0.00 K/uL Glomerular Filtration Rate Calc > 60.0 Lactate 1.1 mmol/L (0.7-2.1) Calcium Level 9.5 mg/dl (8.4-10.2) Total Bilirubin 1.3 mg/dl (0.2-1.3) Aspartate Amino Transf (AST/SGOT) 35 U/L (0-35) Alanine Aminotransferase (ALT/SGPT) 25 U/L (0-56) Alkaline Phosphatase 71 U/L (0-126) C-Reactive Protein 1.5 mg/dl (<1.0) Total Protein 6.8 gm/dl (6.3-8.2) Albumin 4.0 g/dl (3.5-5.0) Urine Color Yellow Urine Clarity Clear Urine pH 5.0 pH (4.8-9.5) Urine Specific Harrington 1.018 Urine Protein Negative mg/dL (NEGATIVE) Urine Glucose (UA) Negative mg/dL (NEGATIVE) Urine Ketones Trace mg/dL (NEGATIVE) Urine Blood Negative (NEGATIVE) Urine Nitrite Negative (NEGATIVE) Urine Bilirubin Negative (NEGATIVE) Urine Urobilinogen 2.0 mg/dL (0.2-1.9) Urine Leukocyte Esterase Negative (NEGATIVE) Urine RBC 1 /HPF (0-2/HPF) Urine WBC 1 /HPF (0-5/HPF) Urine Squamous Epithelial Cells None /LPF (</=FEW) Urine Bacteria Negative /HPF (NONE-FEW) Urine Mucus Few /HPF (NONE-FEW) Urinalysis Test 09/11/17 18:12 Urine Color Yellow Urine Clarity Clear Urine pH 5.0 pH (4.8-9.5) Urine Specific Harrington 1.018 Urine Protein Negative mg/dL (NEGATIVE) Urine Glucose (UA) Negative mg/dL (NEGATIVE) Urine Ketones Trace mg/dL (NEGATIVE) Urine Blood Negative (NEGATIVE) Urine Nitrite Negative (NEGATIVE) Urine Bilirubin Negative (NEGATIVE) Urine Urobilinogen 2.0 mg/dL (0.2-1.9) Urine Leukocyte Esterase Negative (NEGATIVE) Urine RBC 1 /HPF (0-2/HPF) Urine WBC 1 /HPF (0-5/HPF) Urine Squamous Epithelial Cells None /LPF (</=FEW) Urine Bacteria Negative /HPF (NONE-FEW) Urine Mucus Few /HPF (NONE-FEW) EKG/Imaging Imaging EXAMINATION: CT lumbar spine with intravenous contrast Comparison: CT 08/20/2016. History: Postop back pain. Surgery on 09/03/2017. Procedure: Multiplanar contrast enhanced lumbar spine CT with 75 mL intravenous Isovue 370. One of the following dose optimization techniques was utilized in the performance of this exam: Automated exposure control; adjustment of the mA and/ or kV according to the patient's size; or use of an iterative reconstruction technique. Specific details can be referenced in the facility's radiology CT exam operational policy. FINDINGS: L4 laminectomy and L5-S1 Coflex is redemonstrated. Interval L4-L5 discectomy and interbody graft placement with L4-L5 bilateral pedicle screw and paraspinal xochilt fixation. The interbody graft appears normally positioned and the surgical hardware is intact. No acute fracture or malalignment. Moderately advanced degenerative disc disease at L5-S1 with mild to moderate degenerative change at L2-L3 and L3-L4 as before. Mild facet arthropathy throughout the visualized spine. No definite spinal canal stenosis is identified above or below the level of fusion although evaluation of the spinal canal at L4-L5 is limited by extensive streak artifact from the surgical hardware. There is at least moderate foraminal narrowing at the L5-S1 and at least mild foraminal narrowing at L4-L5. Posterior midline soft tissue edema and trace fluid extending along the subcutaneous tissue planes but no definite soft tissue fluid collection is identified. Advanced atherosclerosis along the visualized aorta and iliac vasculature. IMPRESSION: 1. Interval L4-L5 discectomy and interbody graft placement with L4-L5 bilateral pedicle screw and paraspinal xochilt fixation. 2. No acute fracture or malalignment. 3. Limited evaluation of the spinal canal at L4-L5 due to significant streak artifact from the surgical hardware. If there is any clinical concern for canal narrowing or an epidural fluid collection consider further characterization by MRI. 4. Posterior soft tissue postoperative changes with no focal fluid collection. 5. Degenerative change above and below the level of surgery as detailed above. 6. Advanced atherosclerosis. Report Dictated By: Arnaldo Marlow MD at 09/11/2017 6:46 PM Report E-Signed By: Arnaldo Marlow MD at 09/11/2017 6:56 PM Examination: CHEST PA AND LAT Comparison: 06/02/2017 History: Lumbar spine surgery. Postoperative pain. Findings: Cardiac and hilar contour size is within normal limits. No consolidation, nodule, or peribronchial inflammation. No pneumothorax, edema, or effusion. Osseous structures are intact. IMPRESSION: No evidence of acute cardiopulmonary disease. Report Dictated By: Arnaldo Marlow MD at 09/11/2017 6:37 PM Report E-Signed By: Arnaldo Marlow MD at 09/11/2017 6:39 PM ED Course/Re-evaluation ED Course Patient was admitted to exam room, history and physical were obtained. Differential diagnoses were considered. Examination patient did have incisions on the lumbar spine, all through the incisions appear to be well approximated, there is no erythema, there is no heat is no discharge. Patient did have tenderness to palpation along the right side of the low back, just above the sacrum. Patient is also tender on anterior aspect of the right darling as well as the right thigh. A CBC, CMP, CRP, chest x-ray, CT scan of the lumbar spine were done. Patient had a normal white count with a slight left shift, CMP was unremarkable, CRP was 1.5 and chest x-ray was negative. CT scan of the lumbar spine showed no fluid collection consistent with abscess. I discussed the case with Dr. Ratliff, orthopedic surgeon, he is one who performed surgery. He was relieved with the CRP of 1.5 and the normal white count. His recommendation was to go ahead and start the patient on a long-acting medication, OxyContin, that he can take twice a day and then use the Percocet for breakthrough pain. I discussed this with the patient and his and they verbalized understanding and agreement with plan. They're to follow-up with Dr. Ratliff as previously scheduled. Decision to Disposition Date: September 11, 2017 Decision to Disposition Time: 19:08 Depart Departure Latest Vital Signs Vital Signs Date Time Temp Pulse Resp B/P (MAP) Pulse Ox O2 Delivery O2 Flow Rate FiO2 09/11/17 18:17 ??? 09/11/17 18:00 178/108 (131) 09/11/17 17:32 95 09/11/17 16:05 98.9 16 Room Air Impression: Primary Impression: Back pain Condition: Improved Disposition: HOME OR SELF-CARE Referrals: SHANTHI OROPEZA MD (PCP) New Scripts Oxycodone Hcl (OXYCONTIN) 10 Mg Tab.er.12h 10 MG PO BID, #14 TAB Prov: SANDRA RUANO SURINDER 09/11/17 Patient Instructions: Back Pain (ED) Additional Instructions: Limit activity by pain. Follow post surgical instructions that were given last week. Return to the ER if condition worsens. Take the Valium to help with the muscle spasms in the back. Follow up with Dr. Ratliff as previously scheduled. Problem Qualifiers Primary Impression: Back pain Back pain location: low back pain Chronicity: acute Back pain laterality: right Sciatica presence: with sciatica Sciatica laterality: sciatica of right side Qualified Codes: M54.41 - Lumbago with sciatica, right side SANDRA RUANO September 11, 2017 16:53
[2017-09-11 16:58] LABS: PLATELET COUNT, AUTOMATED 172 K/uL (150-450)
[2017-09-11] MEDS ORDERED: DIAZEPAM 50 MG/10 ML MDV IVP ONE (17:15)
[2017-09-11 18:00] VITALS: BP 178/108
[2017-09-11] MEDS ORDERED: IOPAMIDOL 76% 75 ML INFUS BTL 75 ML ONE (18:11)
--- NOTE | 2017-09-11 18:42 | RADIOLOGY IMAGING REPORT ---
FACILITY: [facility] - [place] PATIENT NAME: Kenny Garcia : 1950 MR: [id number] V: [id number] EXAM DATE: ORDERING PHYSICIAN: SANDRA RUANO TECHNOLOGIST: Location: [facility] - [place] Patient: Kenny Garcia : 1950 Visit/Account:[id number] Date of Sevice: 09/11/2017 Examination: CHEST PA AND LAT Comparison: 06/02/2017 History: Lumbar spine surgery. Postoperative pain. Findings: Cardiac and hilar contour size is within normal limits. No consolidation, nodule, or peribr onchial inflammation. No pneumothorax, edema, or effusion. Osseous structures are intact. IMPRESSION: No evidence of acute cardiopulmonary disease. Report Dictated By: Arnaldo Marlow MD at 09/11/2017 6:37 PM Report E-Signed By: Arnaldo Marlow MD at 09/11/2017 6:39 PM WSN:[id number]
--- NOTE | 2017-09-11 19:00 | RADIOLOGY IMAGING REPORT ---
FACILITY: [facility] - [place] PATIENT NAME: Kenny Garcia : 1950 MR: [id number] V: [id number] EXAM DATE: ORDERING PHYSICIAN: SANDRA RUANO TECHNOLOGIST: Location: [facility] - [place] Patient: Kenny Garcia : 1950 Visit/Account:[id number] Date of Sevice: 09/11/2017 EXAMINATION: CT lumbar spine with intravenous contrast Comparison: CT 08/20/2016. History: Postop back pain. Surgery on 09/03/2017. Procedure: Multiplanar contrast enhanced lumbar spine CT with 75 mL intravenous Isovue 370. One of the following dose optimization techniques was utilized in the performance of this exam: Autom ated exposure control; adjustment of the mA and/or kV according to the patient's size; or use of an i terative reconstruction technique. Specific details can be referenced in the facility's radiology C T exam operational policy. FINDINGS: L4 laminectomy and L5-S1 Coflex is redemonstrated. Interval L4-L5 discectomy and interbody graft placement with L4-L5 bilateral pedicle screw and paraspinal xochilt fixation. The interbody graft a ppears normally positioned and the surgical hardware is intact. No acute fracture or malalignment. Moderately advanced degenerative disc disease at L5-S1 with mild t o moderate degenerative change at L2-L3 and L3-L4 as before. Mild facet arthropathy throughout the vi sualized spine. No definite spinal canal stenosis is identified above or below the level of fusion although evaluatio n of the spinal canal at L4-L5 is limited by extensive streak artifact from the surgical hardware. Th ere is at least moderate foraminal narrowing at the L5-S1 and at least mild foraminal narrowing at L4 -L5. Posterior midline soft tissue edema and trace fluid extending along the subcutaneous tissue planes bu t no definite soft tissue fluid collection is identified. Advanced atherosclerosis along the visualiz ed aorta and iliac vasculature. IMPRESSION: 1. Interval L4-L5 discectomy and interbody graft placement with L4-L5 bilateral pedicle screw and par aspinal xochilt fixation. 2. No acute fracture or malalignment. 3. Limited evaluation of the spinal canal at L4-L5 due to significant streak artifact from the surgic al hardware. If there is any clinical concern for canal narrowing or an epidural fluid collection con dial buffer further characterization by MRI. 4. Posterior soft tissue postoperative changes with no focal fluid collection. 5. Degenerative change above and below the level of surgery as detailed above. 6. Advanced atherosclerosis. Report Dictated By: Arnaldo Marlow MD at 09/11/2017 6:46 PM Report E-Signed By: Arnaldo Marlow MD at 09/11/2017 6:56 PM WSN:[id number]
[2017-09-11] MEDS ORDERED: OXYC-823 PO (19:11)
== END 2017-09-11 19:33 | disposition home or self-care (01) ==
LOC: ER 16:18
DX: M54.41 Lumbago with sciatica, right side (principal); Z98.890 Other specified postprocedural states
CPT/HCPCS: 71046; 72132; 81001; 83605; 85025; 86140; 96361; 96374; 96375; 96376; 99284; J1170; J3360; J7030; Q9967; 82040; 82247; 82310; 82374; 82435; 82565; 82947; 84075; 84132; 84155; 84295; 84450; 84460; 84520

== ENCOUNTER → 2018-02-02 | Outpatient (CLI) | payer MEDICARE, OTHER ==
[~2018-02-02] MED LIST changes: +OXYC-823 PO
--- NOTE | 2018-02-02 15:52 | RADIOLOGY IMAGING REPORT ---
FACILITY: [facility] PATIENT NAME: Kenny Garcia : 1950 MR: [id number] V: [id number] EXAM DATE: ORDERING PHYSICIAN: PAMELA ROBERSON TECHNOLOGIST: Location: [facility] Patient: Kenny Garcia : 1950 Visit/Account:[id number] Date of Sevice: 02/02/2018 Exam type: ARTERIAL RENAL DUPLEX DOPPLER History: Hypertension, renal artery stenosis Comparison: CT abdomen and pelvis July 16, 2011. Findings: Right kidney measures 10.3 x 6.3 x 4.7 cm. The peak systolic velocities within the right kidney as measured in centimeters per second are as fol lows: Superior Pole arcuate artery 10.01; resistive index 0.49 Superior pole interlobar artery 11.3; resistive index 0.46 Superior pole segmental artery 14.3; resistive index 0.48 Mid arcuate artery 13.3; resistive index 0.54 Mid interlobar artery 19.2; resistive index 0.63 Mid segmental artery 26.1; resistive index 0.64 Inferior Pole arcuate artery 12.3; resistive index 0.54 Inferior Pole interlobar artery 18.9; resistive index 0.57 Interpole segmental artery 15.5; resistive index 0.56 Right renal artery proximally 76.3 Right renal artery distally 64.7 The right renal artery ratio at the kidney 0.64 and at the aorta 0.75 Left kidney measures 11 x 6.1 x 5.1. Centimeters There is a 1.5 cm cyst lateral aspect the left kidney The peak systolic velocities within the left kidney as measured in centimeters per second are as foll ows: Superior Pole arcuate artery 15.7; resistive index 0.49 Superior pole interlobar artery 18.4; resistive index 0.55 Superior pole segmental artery 26.1; resistive index 0.58 Mid arcuate artery 25.5; resistive index 0.59 Mid pole interlobar artery 21.5; resistive index 0.57 Mid segmental artery 23.3; resistive index 0.58 Inferior Pole arcuate artery 20.6; resistive index 0.60 Inferior Pole interlobar artery 18.7; resistive index 0.61 Inferior pole segmental artery 23.76; resistive index 0.56 Left renal artery proximal 108 Left renal artery distal 94.5 Left renal artery ratio at the kidney 0.93 and at the aorta 1.06 IMPRESSION: 1. No elevated peak systolic velocities or abnormal resistive indices identified in either kidney Report Dictated By: Maribell Coley MD at 02/02/2018 3:35 PM Report E-Signed By: Maribell Coley MD at 02/02/2018 3:48 PM WSN:[email or web address]
== END ==
LOC: US 03:05
PROVIDERS: ATTEND Internal Medicine Cardiovascular Disease
DX: I10 Essential (primary) hypertension (principal)

== ENCOUNTER → 2018-04-21 | Outpatient (CLI) | payer OTHER, MEDICARE ==
--- NOTE | 2018-04-21 14:46 | RADIOLOGY IMAGING REPORT ---
FACILITY: [facility] - [place] PATIENT NAME: Kenny Garcia : 1950 MR: [id number] V: [id number] EXAM DATE: ORDERING PHYSICIAN: MICHELLE TRISTAN TECHNOLOGIST: Location: [facility] [place] Patient: Kenny Garcia : 1950 Visit/Account:[id number] Date of Sevice: 04/21/2018 US VENOUS LOWER EXT RT EXAMINATION: Unilateral lower extremity deep vein duplex Doppler ultrasound Additional Pertinent history: none COMPARISON STUDIES: none FINDINGS: Grayscale compression, duplex and color Doppler interrogation of the RIGHT lower extremity deep vein s from common femoral vein to proximal calf was performed. The greater saphenous vein was evaluated u sing similar technique. Common femoral vein negative Femoral vein negative Deep femoral vein - negative Popliteal vein negative Visualized deep calf veins negative Greater saphenous vein in the proximal thigh negative Popliteal fossa: negative Somewhat roundish complex fluid collection seen in the medial calf of the right measuring approximate ly 4.4 x 2.6 x 2.0 cm IMPRESSION: 1. No DVT noted. 2. Aleaxndra's cyst Report Dictated By: Yoav Sharp MD at 04/21/2018 2:37 PM Report E-Signed By: Yoav Sharp MD at 04/21/2018 2:42 PM WSN:[email or web address]
== END ==
LOC: US 13:37
PROVIDERS: ATTEND Orthopaedic Surgery
DX: M71.21 Synovial cyst of popliteal space [Baker], right knee (principal); R22.41 Localized swelling, mass and lump, right lower limb

== ENCOUNTER 2018-07-23 04:20 | Emergency (ER) | payer MEDICARE, OTHER ==
--- NOTE | 2018-07-23 04:23 | ER Report ---
History and Physical Time Seen By MD: 04:21 HPI/ROS CHIEF COMPLAINT: Midsternal chest pain HISTORY OF PRESENT ILLNESS: Patient is a 68-year-old male with a history significant for prior heart attack with 2 stent placement in 2011 here with comp laints of midsternal chest pain with radiation to the back which is been constant since yesterday morning after waking up. Patient denies recent cough, shortness of breath, fevers or chills. Patient reports that his current symptoms are similar to his prior presentation with heart attack. Patient does have a history significant for hypertension, hyperlipidemia. Denies smoking history. REVIEW OF SYSTEMS: Constitutional: No fever, no chills. Eyes: No discharge. ENT: No sore throat. Cardiovascular: + mid sternal chest pain with radiation to back, no palpitations. Respiratory: No cough, no shortness of breath. Gastrointestinal: No abdominal pain, no vomiting. Genitourinary: No hematuria. Musculoskeletal: No back pain. Skin: No rashes. Neurological: No headache. Allergies: Coded Allergies: No Known Allergies (Verified Allergy, Mild, 09/11/17) zolpidem (Verified Adverse Reaction, Mild, SLEEP WALKS, 09/11/17) Home Meds Active Scripts Oxycodone Hcl/Acetaminophen (PERCOCET 5-325 MG TABLET) 1 Each Tablet, 1 TAB PO Q4H PRN for PAIN, #12 TAB 0 Refills Prov:FE PETER DO 07/23/18 Oxycodone Hcl (OXYCONTIN) 10 Mg Tab.er.12h, 10 MG PO BID, #14 TAB Prov:SANDRA RUANO 09/11/17 Reported Medications Docusate Calcium (SURFAK) 240 Mg Capsule, 240 MG PO DAILY, #9 CAPSULE 09/04/17 Hydrocodone Bit/Acetaminophen (HYDROCODON-ACETAMINOPHEN 5-325) 1 Each Tablet, 1- 2 TAB PO Q6H PRN for PAIN, #49 TAB 09/04/17 Atorvastatin Calcium (ATORVASTATIN CALCIUM) 40 Mg Tablet, 1 TAB PO QDAY, TAB 09/03/17 Lisinopril (LISINOPRIL) 20 Mg Tablet, 20 MG PO QDAY, TAB 09/03/17 Gabapentin (GABAPENTIN) 400 Mg Capsule, 400 MG PO TID, CAPSULE 09/03/17 Aspirin (ASPIRIN) 325 Mg Tablet, 0.5 TAB PO QDAY, TAB 08/26/17 Esomeprazole Magnesium (NEXIUM) 40 Mg Capsule.dr, 1 CAP PO QAM, CAP 08/26/17 Celecoxib (CELEBREX) 200 Mg Capsule, 200 MG PO QDAY, CAPSULE 08/26/17 Clopidogrel Bisulfate (CLOPIDOGREL) 75 Mg Tablet, 1 TAB PO QDAY, TAB TAKE ONE TABLET BY MOUTH EVERY DAY 01/09/14 Hydrochlorothiazide (HYDROCHLOROTHIAZIDE) 25 Mg Tablet, 0.5 TAB PO QDAY TAKE ONE TABLET BY MOUTH EVERY DAY 01/09/14 Isosorbide Mononitrate (ISOSORBIDE MONONITRATE) 20 Mg Tablet, 30 MG PO DAILY 01/09/14 Carvedilol (Coreg) 6.25 Mg Tab, 12.5 MG PO BID 07/16/11 Hx Smoking: No (CHEWS 1 CAN EVERY 6-7 DAYS) Smoking Status: Never Smoker Hx Substance Use Disorder: No Hx Alcohol Use: Yes (NIGHTLY DRINK) Constitutional Vital Sign - Last 24 Hours 07/23/18 07/23/18 07/23/18 07/23/18 04:20 04:24 04:28 04:30 Temp 99.3 Pulse ??? 86 Resp 14 B/P (MAP) 149/102 149/102 (118) 156/99 (118) Pulse Ox 90 O2 Delivery Room Air 07/23/18 07/23/18 07/23/18 07/23/18 04:50 05:00 05:05 05:20 Pulse 90 82 Resp 14 18 B/P (MAP) 118/87 (97) Pulse Ox 90 93 O2 Flow Rate 2.0 07/23/18 07/23/18 07/23/18 07/23/18 05:30 05:50 05:55 06:10 Pulse 79 ??? Resp 22 B/P (MAP) 117/77 (90) 136/84 (101) Pulse Ox 96 07/23/18 07/23/18 06:25 06:30 Pulse 77 Resp 15 B/P (MAP) 122/81 (95) Pulse Ox 98 Physical Exam General Appearance: The patient is alert, has no immediate need for airway protection and no signs of toxicity. Uncomfortable appearing Eyes: Pupils equal and round no pallor or injection. ENT, Mouth: Mucous membranes are moist. Respiratory: There are no retractions, lungs are clear to auscultation. Cardiovascular: Regular rate and rhythm. Gastrointestinal: Abdomen is soft and non tender, no masses, bowel sounds normal. Neurological: No focal neurological findings Skin: Warm and dry, no rashes. Musculoskeletal: Neck is supple non tender. Extremities are nontender, nonswollen and have full range of motion. DIFFERENTIAL DIAGNOSIS: After history and physical exam differential diagnosis was considered for chest pain including but not limited to myocardial ischemia, pericarditis pulmonary embolus, chest wall pain, pleural inflammation and pulmonary infectious causes, musculoskeletal pain, referred back pain Medical Decision Making Data Points Result Diagram: 07/23/1843907/23/18439 Laboratory Hematology Test 07/23/18 04:40 Red Blood Count 5.43 M/uL (4.00-5.60) Mean Corpuscular Volume 93.5 fL (80.0-96.0) Mean Corpuscular Hemoglobin 32.1 pg (26.0-33.0) Mean Corpuscular Hemoglobin Concent 34.3 g/dL (32.0-36.0) Red Cell Distribution Width 14.2 % (11.5-14.5) Mean Platelet Volume 9.0 fL (7.2-11.1) Neutrophils (%) (Auto) 88.4 % (39.4-72.5) Lymphocytes (%) (Auto) 3.5 % (17.6-49.6) Monocytes (%) (Auto) 6.3 % (4.1-12.4) Eosinophils (%) (Auto) 1.0 % (0.4-6.7) Basophils (%) (Auto) 0.8 % (0.3-1.4) Nucleated RBC Relative Count (auto) 0.2 /100WBC Neutrophils # (Auto) 3.5 K/uL (2.0-7.4) Lymphocytes # (Auto) 0.1 K/uL (1.3-3.6) Monocytes # (Auto) 0.3 K/uL (0.3-1.0) Eosinophils # (Auto) 0.0 K/uL (0.0-0.5) Basophils # (Auto) 0.0 K/uL (0.0-0.1) Nucleated RBC Absolute Count (auto) 0.01 K/uL Prothrombin Time 12.7 seconds (12.0-14.4) Prothromb Time International Ratio 0.96 Activated Partial Thromboplast Time 28 seconds (23-35) D-Dimer Quantitative (PE/DVT) 2.00 ug/ml (0-0.50) Sodium Level 137 mmol/L (137-145) Potassium Level 3.4 mmol/L (3.5-5.0) Chloride Level 99 mmol/L (98-107) Carbon Dioxide Level 22 mmol/L (22-30) Blood Urea Nitrogen 10 mg/dl (9-21) Creatinine 0.80 mg/dl (0.66-1.25) Glomerular Filtration Rate Calc > 60.0 Random Glucose 97 mg/dl (75-110) Calcium Level 9.1 mg/dl (8.4-10.2) Total Bilirubin 1.1 mg/dl (0.2-1.3) Aspartate Amino Transf (AST/SGOT) 40 U/L (0-35) Alanine Aminotransferase (ALT/SGPT) 46 U/L (0-56) Alkaline Phosphatase 100 U/L (0-126) Troponin I < 0.012 ng/ml B-Type Natriuretic Peptide 83 pg/ml (0-100) Total Protein 7.6 g/dl (6.3-8.2) Albumin 4.7 g/dl (3.5-5.0) Chemistry Test 07/23/18 04:40 White Blood Count 4.0 k/uL (4.5-11.0) Red Blood Count 5.43 M/uL (4.00-5.60) Hemoglobin 17.4 g/dL (14.0-18.0) Hematocrit 50.7 % (42.0-52.0) Mean Corpuscular Volume 93.5 fL (80.0-96.0) Mean Corpuscular Hemoglobin 32.1 pg (26.0-33.0) Mean Corpuscular Hemoglobin Concent 34.3 g/dL (32.0-36.0) Red Cell Distribution Width 14.2 % (11.5-14.5) Platelet Count 144 K/uL (150-450) Mean Platelet Volume 9.0 fL (7.2-11.1) Neutrophils (%) (Auto) 88.4 % (39.4-72.5) Lymphocytes (%) (Auto) 3.5 % (17.6-49.6) Monocytes (%) (Auto) 6.3 % (4.1-12.4) Eosinophils (%) (Auto) 1.0 % (0.4-6.7) Basophils (%) (Auto) 0.8 % (0.3-1.4) Nucleated RBC Relative Count (auto) 0.2 /100WBC Neutrophils # (Auto) 3.5 K/uL (2.0-7.4) Lymphocytes # (Auto) 0.1 K/uL (1.3-3.6) Monocytes # (Auto) 0.3 K/uL (0.3-1.0) Eosinophils # (Auto) 0.0 K/uL (0.0-0.5) Basophils # (Auto) 0.0 K/uL (0.0-0.1) Nucleated RBC Absolute Count (auto) 0.01 K/uL Prothrombin Time 12.7 seconds (12.0-14.4) Prothromb Time International Ratio 0.96 Activated Partial Thromboplast Time 28 seconds (23-35) D-Dimer Quantitative (PE/DVT) 2.00 ug/ml (0-0.50) Glomerular Filtration Rate Calc > 60.0 Calcium Level 9.1 mg/dl (8.4-10.2) Total Bilirubin 1.1 mg/dl (0.2-1.3) Aspartate Amino Transf (AST/SGOT) 40 U/L (0-35) Alanine Aminotransferase (ALT/SGPT) 46 U/L (0-56) Alkaline Phosphatase 100 U/L (0-126) Troponin I < 0.012 ng/ml B-Type Natriuretic Peptide 83 pg/ml (0-100) Total Protein 7.6 g/dl (6.3-8.2) Albumin 4.7 g/dl (3.5-5.0) Coagulation Test 07/23/18 04:40 Prothrombin Time 12.7 seconds Prothromb Time International Ratio 0.96 Activated Partial Thromboplast Time 28 seconds D-Dimer Quantitative (PE/DVT) 2.00 ug/ml EKG/Imaging EKG Interpretation FACILITY: [facility] PATIENT NAME: KENNY MARIEE : [id number] MR: [id number] V: [id number] EXAM DATE: ORDERING PHYSICIAN: FE PETER TECHNOLOGIST: DU Test Reason : CP Blood Pressure : / mmHG Vent. Rate : 087 BPM Atrial Rate : 087 BPM P-R Int : 190 ms QRS Dur : 082 ms QT Int : 364 ms P-R-T Axes : 034 053 054 degrees QTc Int : 438 ms Normal sinus rhythm ST and T wave abnormality, consider anterior ischemia Abnormal ECG When compared with ECG of 21-AUG-2017 11:27, T wave inversion now evident in Anterior leads Referred By: Confirmed By: Monitor Interpretation: Normal Sinus Rhythm Imaging PATIENT NAME: Kenny Mariee : 1950 MR: [id number] V: [id number] EXAM DATE: ORDERING PHYSICIAN: FE PETER TECHNOLOGIST: Location: [facility] [place] Patient: Kenny Mariee : 1950 Visit/Account:[id number] Date of Sevice: 07/23/2018 CHEST SINGLE AP 07/23/2018 05:11 hours. HISTORY: Chest pain. History of cardiac stents. COMPARISON: 09/11/2017 and studies dating to 07/10/2011. TECHNIQUE: Portable AP view of the chest. FINDINGS: Tubes/lines/hardware: There are external chest leads. Pulmonary/pleura: Lungs are clear. There is no pneumothorax or pleural effusion. Cardiomediastinal: Cardiac and mediastinal silhouettes are within normal limits. Bones/soft tissues: No acute osseous abnormality. The visible abdomen is normal. IMPRESSION: 1. No acute cardiopulmonary process. ED Course/Re-evaluation ED Course Patient is a 68-year-old male here with complaints of midsternal chest pain with radiation to the back which is been present since yesterday morning. Patient rep orts similar symptoms as his prior myocardial infarction in 2011 requiring 2 stents. Patient denies taking nitroglycerin, he did take his half dose aspirin. Denies recent cough or cold symptoms. Denies smoking history. Troponin was found to be negative. CBC, CMP were found to be unremarkable. EKG showed no signs of clear ischemia. Chest x-ray showed no acute findings. Patient was given aspirin, nitroglycerin, fentanyl with significant improvement in symptoms. D-dimer was found be elevated so CT PE study was ordered. CT showed no signs of pulmonary embolism, infectious etiology. Recommend close PCP follow-up. Return precautions provided. Prescription given for Percocet temporary short prescription until able to follow-up with PCP. Decision to Disposition Date: Jul 23, 2018 Decision to Disposition Time: 06:45 Depart Departure Latest Vital Signs Vital Signs Date Time Temp Pulse Resp B/P (MAP) Pulse Ox O2 Delivery O2 Flow Rate FiO2 07/23/18 06:30 122/81 (95) 07/23/18 06:25 77 15 98 07/23/18 05:05 2.0 07/23/18 04:24 99.3 Room Air Impression: Primary Impression: Chest pain Additional Impression: Back pain Condition: Improved Disposition: HOME OR SELF-CARE Referrals: SHANTHI OROPEZA MD (PCP) New Scripts Oxycodone Hcl/Acetaminophen (PERCOCET 5-325 MG TABLET) 1 Each Tablet 1 TAB PO Q4H PRN for PAIN, #12 TAB 0 Refills Prov: FE PETER DO 07/23/18 Patient Instructions: Chest Pain (ED) Additional Instructions: Please continue all medications as prescribed. Please follow-up with her family doctor in the next 24-48 hours. Please return immediately if she develop recurrent chest pain, shortness breath, fevers or chills, nausea or vomiting. Problem Qualifiers FE PETER DO Jul 23, 2018 04:23
[2018-07-23] MEDS ORDERED: ASPIRIN 81 MG CHEW PO ONE (04:25)
[2018-07-23] MEDS: NITROGLYCERIN 0.4 MG SUBL SL SCH ×2 (04:42→04:49)
[2018-07-23 04:52] LABS: PLATELET COUNT, AUTOMATED 144 K/uL (150-450)
[2018-07-23] MEDS ORDERED: fentaNYL CITR 100 MCG/2 ML AMP IVP ONE (04:55)
[2018-07-23 04:59] LABS: INR 0.96
--- NOTE | 2018-07-23 05:28 | RADIOLOGY IMAGING REPORT ---
FACILITY: [facility] PATIENT NAME: Kenny Garcia : 1950 MR: [id number] V: [id number] EXAM DATE: ORDERING PHYSICIAN: FE PETER TECHNOLOGIST: Location: [facility] Patient: Kenny Garcia : 1950 Visit/Account:[id number] Date of Sevice: 07/23/2018 CHEST SINGLE AP 07/23/2018 05:11 hours. HISTORY: Chest pain. History of cardiac stents. COMPARISON: 09/11/2017 and studies dating to 07/10/2011. TECHNIQUE: Portable AP view of the chest. FINDINGS: Tubes/lines/hardware: There are external chest leads. Pulmonary/pleura: Lungs are clear. There is no pneumothorax or pleural effusion. Cardiomediastinal: Cardiac and mediastinal silhouettes are within normal limits. Bones/soft tissues: No acute osseous abnormality. The visible abdomen is normal. IMPRESSION: 1. No acute cardiopulmonary process. Report Dictated By: Sarita Jesus at 07/23/2018 5:22 AM Report E-Signed By: Sarita Jesus at 07/23/2018 5:24 AM WSN:[id number]
--- NOTE | 2018-07-23 05:29 | EKG ---
FACILITY: [facility] PATIENT NAME: ERVIN MARIEE : [id number] MR: [id number] V: [id number] EXAM DATE: ORDERING PHYSICIAN: FE PETER TECHNOLOGIST: DU Test Reason : CP Blood Pressure : / mmHG Vent. Rate : 087 BPM Atrial Rate : 087 BPM P-R Int : 190 ms QRS Dur : 082 ms QT Int : 364 ms P-R-T Axes : 034 053 054 degrees QTc Int : 438 ms Normal sinus rhythm ST and T wave abnormality, consider anterior ischemia Abnormal ECG When compared with ECG of 21-AUG-2017 11:27, T wave inversion now evident in Anterior leads Confirmed by SHANTHI ZIMMER ([id number]) on 07/23/2018 6:38:53 AM Referred By: Confirmed By:SHANTHI ZIMMER
[2018-07-23] MEDS ORDERED: IOPAMIDOL 76% 150 ML INFUS BTL 150 ML ONE (05:57)
[2018-07-23] MEDS ORDERED: NS(*) 0.9% 50 ML BAG 50 ML ONE (05:57)
[2018-07-23 06:30] VITALS: BP 122/81
--- NOTE | 2018-07-23 06:44 | RADIOLOGY IMAGING REPORT ---
FACILITY: [facility] [place] PATIENT NAME: Kenny Garcia : 1950 MR: [id number] V: [id number] EXAM DATE: ORDERING PHYSICIAN: FE PETER TECHNOLOGIST: Location: [facility] Patient: Kenny Garcia : 1950 Visit/Account:[id number] Date of Sevice: 07/23/2018 CT angiogram chest with contrast Indication: Chest pain which radiates to the mid back. Comparison: June 02, 2017 Technique: Axial CT images are obtained through the chest after administration of 75 mL Isovue 370 IV contrast. Reformatted coronal and sagittal images were reviewed as well as coronal MIP images. One o f the following dose optimization techniques was utilized in the performance of this exam: Automated exposure control; adjustment of the mA and/or kV according to the patient's size; or use of an iterat babak reconstruction technique. Specific details can be referenced in the facility's radiology CT exa m operational policy. FINDINGS: No evidence of filling defect within the pulmonary vasculature to suggest pulmonary embolus. There is minimal contrast opacification of the thoracic aorta. As seen previously, there is aneurysma l dilatation of the ascending thoracic aorta. This measures up to 4.7 x 4.7 cm on today's exam. When measured similar on the prior, this measured 4.5 x 4.5 cm. There are atherosclerotic calcifications within the aortic arch and the arch vessels. No evidence of pericardial effusion or pleural effusion. There are dense coronary artery atherosclerotic calcificati ons identified. No axillary adenopathy. No hilar or mediastinal adenopathy. Examination of the lung windows demonstrates dependent lower lobe atelectasis. No confluent infiltrat e or air bronchograms are seen. A calcified nodule seen in the left upper lung which is characteristi c of old granulomatous disease. Limited images of the upper abdomen redemonstrate low-attenuation lesions in the left hepatic lobe ne ar the dome. There are calcifications within the liver. Significance uncertain. This could be related to old granulomatous disease. Liver findings are stable dating back to 2011. Visualized thoracic spine is unremarkable. The vertebral body heights are well maintained. No acute a lignment abnormality IMPRESSION: 1. No evidence of acute pulmonary embolism. 2. Atherosclerotic thoracic aorta with aneurysmal dilatation of the ascending aorta measuring 4.7 x 4 .7 cm (previously 4.5 x 4.5 cm). 3. Fairly extensive coronary artery atherosclerotic calcifications. 4. Old granulomatous disease. 5. Stable appearance of the liver which appears unchanged since 2011. Report Dictated By: David Proctor at 07/23/2018 6:24 AM Report E-Signed By: David Proctor at 07/23/2018 6:40 AM WSN:[id number]
[2018-07-23] MEDS ORDERED: OXYC-865 PO (06:50)
[2018-07-23] MEDS ORDERED: oxyCODONE/ACETAMIN 5/325MG TH 2 TAB/BOTTLE PO ONE (06:50)
== END 2018-07-23 06:57 | disposition home or self-care (01) ==
LOC: ER 04:39
DX: R07.9 Chest pain, unspecified (principal); M54.9 Dorsalgia, unspecified; Z95.1 Presence of aortocoronary bypass graft
CPT/HCPCS: 71045; 71275; 83880; 84484; 85025; 85379; 85610; 85730; 93005; 96374; 99284; A9270; J3010; J7050; Q9967; 82040; 82247; 82310; 82374; 82435; 82565; 82947; 84075; 84132; 84155; 84295; 84450; 84460; 84520

== ENCOUNTER 2018-09-16 01:38 | Inpatient (IN) | payer OTHER, MEDICARE ==
[~2018-09-16] VITALS: Ht 180.3 cm; Wt 86.2 kg
[2018-09-16] VITALS (20 sets, daily range): BP systolic 103–149; BP diastolic 60–104
[~2018-09-16 01:38] MED LIST changes: +OXYC-865 PO; +TRAM-420 PO
[2018-09-16] MEDS ORDERED: LIDOCAINE/SOD BICARB 8.4% SYR ID ONE (09:10)
[2018-09-16] MEDS ORDERED: MIDAZOLAM 2 MG/2 ML VIAL IVP PRN (09:10)
[2018-09-16] MEDS ORDERED: ceFAZolin(*) 2GM/D5W 50ML 50 ML IVPB ONE (09:10)
[2018-09-16] MEDS ORDERED: NORMOSOL R SOLN(*) 1000 ML BAG 1,000 ML IV PRN (09:10)
[2018-09-16] MEDS ORDERED: BACITRACIN 50000 UNIT/VIAL 50,000 UNIT in NS 0.9% IRRIG(*) 1000ML PLCT 1,000 ML IR PRN (09:10)
[2018-09-16] MEDS ORDERED: ACETAMINOPHEN 500 MG TAB PO ONE (09:10)
[2018-09-16] MEDS ORDERED: fentaNYL CITR 100 MCG/2 ML AMP ONE ×3 (10:42→13:23)
[2018-09-16] MEDS ORDERED: ROCURONIUM BROM 10 MG/ML 10 ML ONE (10:43)
[2018-09-16] MEDS ORDERED: ONDANSETRON 4 MG/2 ML VIAL ONE (10:43)
[2018-09-16] MEDS ORDERED: PROPOFOL EMUL(*) 10MG/ML 20 ML 20 ML ONE (10:43)
[2018-09-16] MEDS ORDERED: DEXAMETHASONE SOD PHOS 10MG/ML ONE (11:14)
[2018-09-16] MEDS ORDERED: diphenhydrAMINE 50 MG/ML VIAL ONE (11:20)
[2018-09-16] MEDS ORDERED: SUGAMMADEX SOD 200 MG/2 ML SDV ONE (11:24)
[2018-09-16] MEDS ORDERED: ROPIVACAINE 0.2% 20 ML VIAL ONE (11:34)
[2018-09-16] MEDS ORDERED: NS(*) 0.9% 500 ML BAG 500 ML ONE (11:38)
[2018-09-16] MEDS ORDERED: LABETALOL HCL 25 MG/5 ML SYRINGE ONE (12:05)
--- NOTE | 2018-09-16 12:18 | OPERATIVE REPORT 1 ---
EVENT DATE: September 16, 2018 SURGEON: Jf Ratliff MD ANESTHESIOLOGIST: Van Barrios MD ANESTHESIA: General endotracheal. PONY RIDE OPERATOR: Royce Tong PA-C PREOPERATIVE DIAGNOSIS 1. Right L5 radiculopathy with L5-S1 foraminal stenosis. 2. Back pain, likely secondary to presence of mobile coflex device. POSTOPERATIVE DIAGNOSIS 1. Right L5 radiculopathy with L5-S1 foraminal stenosis. 2. Back pain, likely secondary to presence of mobile coflex device. PROCEDURE PERFORMED 1. Removal of coflex device/deep implant. 2. L5-S1 laminectomy with right-sided hemilaminectomy and L5-S1 foraminotomy. IV FLUIDS 1L. ESTIMATED BLOOD LOSS 140 cc. IMPLANTS None. SPECIMENS A coflex device was removed from the L5-S1 interspinous space. DRAINS None. COMPLICATIONS None. DISPOSITION Post-Anesthesia Care Unit. INDICATIONS Mr. Garcia is a 68-year old gentleman with an extensive history of spine surgeries including placement of coflex devices, laminectomies and an L4-L5 transforaminal lumbar interbody fusion that I performed last year. Mr. Garcia continued to have significant right lower extremity pain radiating in an L5 distribution as well as some weakness in both extensor hallucis longus and tibialis anterior on that side. We ultimately sent him through multiple courses of physical therapy, tried medications and then sent him for a right sided L5 selective nerve root injection, which gave him excellent relief but only temporarily. The MRI did show significant foraminal narrowing on that right side at L5-S1 so we offered and he elected to undergo removal of his coflex device given ongoing back pain in the region of the device in addition to an L5 laminectomy, L4 hemilaminectomy and L5-S1 foraminotomy. Prior to surgery, I explained in detail to the patient the possible risks of surgery. These risks include bleeding, infection, damage to surrounding structures, nerve root injury, spinal fluid leak, meningitis, persistent and/or worsening pain, need for further surgery, , blindness, sexual dysfunction, autonomic nervous system dysfunction and other unforeseen medical and surgical complications. An understanding that in general spinal surgery is more predictive at improving extremity discomfort than axial spine pain was stressed. Further discussion was had regarding the increased risks of such complications as dural tear, infection, bleeding, etc. given his medical comorbidities and the revision nature of the procedure. DESCRIPTION OF PROCEDURE On the date of surgery, the patient was met in the preoperative hold area and all questions were answered. The operative site was identified and marked by myself. The patient was brought to the operating room in good condition and after succumbing to anesthesia was positioned in the prone position on a Leeroy table. All bony protuberances and soft tissues were well padded in the standard fashion. Preoperative antibiotics were administered according to the appropriate timing schedule. Care was taken to maintain appropriate perfusion pressure during anesthesia. At the conclusion of the procedure, sponge and needle counts were correct x2. A final time-out was undertaken by members of the operating team to confirm correct patient, correct levels and correct surgery. The patient was then prepped and draped in the sterile standard orthopedic fashion. A vertical incision was made overlying the intended surgical levels. Sharp dissection was carried out down to the posterior elements and the coflex device was identified. Electrocautery was used to remove all overlying soft tissue from the coflex device and the coflex device was then removed. The device came out in one piece. A Leksell rongeur was used to remove the spinous process of L5 and a combination of the Leksell rongeur and a high-speed bur were used to decorticate and thin the L5 lamina. Once this was accomplished, a Muro curette was used to undermine the superior insertion of the ligamentum flavum from the inferior aspect of the L5 lamina. The canal was entered and a Dumas elevator was then used to separate any dural adhesions from surrounding bone or soft tissue prior to use of the Kerrison rongeur. A laminectomy of L5 was performed with #3 and #4 Kerrison rongeurs and then we ventured out laterally, particularly on the right side, in order to undercut the facet and fully decompress the exiting L5 nerve root as well as the transiting S1 nerve root. Foraminotomy Kerrisons were passed out into the foramen and further decompression was performed. At the conclusion of the decompression, a Dumas elevator as well as a Maher probe were passed out the foramen and there was excellent decompression of that L5 root as it exited. The wound was then irrigated with copious sterile saline solution. Meticulous hemostasis was obtained. 2 mg of Decadron were infused around the L5 nerve root and the wound was then closed in layers using running Stratafix suture for the deep fascia, inverted interrupted suture for the subcutaneous tissue and running subcuticular skin stitch. Sponge and needle counts were correct x3. POSTOPERATIVE CARE PLAN Mr. Garcia will remain in the hospital overnight for pain control and physical therapy. He will then be discharged home with instructions to followup in two weeks for wound check and examination. RODRIGO
[2018-09-16] MEDS ORDERED: FLUSH 10 ML SYR IVP PRN (14:05)
[2018-09-16] MEDS ORDERED: ACETAMINOPHEN(*)1000 MG/100 ML 100 ML IVPB PRN (14:05)
[2018-09-16] MEDS ORDERED: BISACODYL 10 MG SUPP PR PRN (14:05)
[2018-09-16] MEDS ORDERED: HYDROmorphone HCL 2 MG/ML SDV IVP PRN (14:05)
[2018-09-16] MEDS ORDERED: diphenhydrAMINE 25 MG CAP PO PRN ×2 (14:05→20:05)
[2018-09-16] MEDS ORDERED: DIAZEPAM 5 MG TAB PO PRN (14:05)
[2018-09-16] MEDS ORDERED: MAGNESIUM HYDROXIDE* 30ML UDCP PO PRN (14:05)
[2018-09-16] MEDS ORDERED: LR(*) 1000 ML BAG 1,000 ML IV PRN (14:05)
[2018-09-16] MEDS ORDERED: BENZOCAINE/MENTHOL 1 EACH LOZG PO PRN (14:05)
[2018-09-16] MEDS ORDERED: ONDANSETRON 4 MG/2 ML VIAL IVP PRN (14:05)
[2018-09-16] MEDS ORDERED: ACETAMINOPHEN 500 MG TAB PO PRN (14:05)
[2018-09-16] MEDS: oxyCODONE HCL 5 MG CAP PO PRN (14:15)
--- NOTE | 2018-09-16 15:20 | Hospitalist Consultation ---
History of Present Illness Requesting Physician Dr. Ratliff Reason for Consult Medical Management Chief Complaint s/p lumbar surgery History of Present Illness He was admitted s/p lumbar surgery. It is reported the surgery went well and without complication. History Problems: (1) Hypertension Status: Chronic (2) Hyperlipidemia Status: Chronic (3) CAD (coronary artery disease) Status: Chronic (4) CO (myocardial infarction) Home Meds Active Scripts Oxycodone Hcl/Acetaminophen (PERCOCET 5-325 MG TABLET) 1 Each Tablet, 1 TAB PO Q4H PRN for PAIN, #12 TAB 0 Refills Prov:FE PETER DO 07/23/18 Oxycodone Hcl (OXYCONTIN) 10 Mg Tab.er.12h, 10 MG PO BID, #14 TAB Prov:SANDRA RUANO WIRE SAW OPERATOR 09/11/17 Reported Medications Tramadol Hcl (TRAMADOL HCL) 50 Mg Tablet, 50-100 MG PO PRN, TAB 09/10/18 Hydrocodone Bit/Acetaminophen (HYDROCODON-ACETAMINOPHEN 5-325) 1 Each Tablet, 1- 2 TAB PO Q6H PRN for PAIN, #49 TAB 09/04/17 Atorvastatin Calcium (ATORVASTATIN CALCIUM) 40 Mg Tablet, 1 TAB PO QAM, TAB 09/03/17 Lisinopril (LISINOPRIL) 20 Mg Tablet, 40 MG PO QAM, TAB 09/03/17 Gabapentin (GABAPENTIN) 400 Mg Capsule, 400 MG PO TID, CAPSULE 09/03/17 Esomeprazole Magnesium (NEXIUM) 40 Mg Capsule.dr, 1 CAP PO QAM, CAP 08/26/17 Celecoxib (CELEBREX) 200 Mg Capsule, 200 MG PO QAM, CAPSULE 08/26/17 Clopidogrel Bisulfate (CLOPIDOGREL) 75 Mg Tablet, 1 TAB PO QDAY, TAB TAKE ONE TABLET BY MOUTH EVERY DAY 01/09/14 Hydrochlorothiazide (HYDROCHLOROTHIAZIDE) 25 Mg Tablet, 0.5 TAB PO QDAY TAKE ONE TABLET BY MOUTH EVERY DAY 01/09/14 Isosorbide Mononitrate (ISOSORBIDE MONONITRATE) 20 Mg Tablet, 30 MG PO QAM 01/09/14 Carvedilol (Coreg) 6.25 Mg Tab, 12.5 MG PO BID 07/16/11 Discontinued Reported Medications Docusate Calcium (SURFAK) 240 Mg Capsule, 240 MG PO DAILY, #9 CAPSULE 09/04/17 Aspirin (ASPIRIN) 325 Mg Tablet, 0.5 TAB PO QDAY, TAB 08/26/17 Allergies: Coded Allergies: No Known Allergies (Verified Allergy, Mild, 09/11/17) zolpidem (Verified Adverse Reaction, Mild, SLEEP WALKS, 09/11/17) Patient History: FH: heart disease MOTHER Hx Smoking: No (CHEWS 1 CAN EVERY 6-7 DAYS) Smoking Status: Never Smoker Caffeine Intake: Coffee Caffeine/Cups Per Day: 1 CPD Hx Alcohol Use: Yes (1 NIGHTLY DRINK) Hx Substance Use Disorder: No Social Drug Use: Never Review of Systems All Systems Reviewed/Normal: Yes, Except as Noted Exam Vital Signs Vital Signs Date Time Temp Pulse Resp B/P (MAP) Pulse Ox O2 Delivery O2 Flow Rate FiO2 09/16/18 13:57 98.1 63 16 111/67 (82) 90 Nasal Cannula 3.0 General Appearance: Alert, Awake, No Acute Distress, Afebrile Neuro: No Gross deficits Cardiovascular: Regular Rate and Rhythm Respiratory: No Respiratory Distress, Clear to Auscultation Psych: Alert & Oriented X3, Appropriate Mood & Affect Assessment and Plan Problems: (1) Hypertension Status: Chronic Assessment & Plan: Continue chronic Lisinopril with hold parameters. Hold HCTZ for now. (2) Hyperlipidemia Status: Chronic Assessment & Plan: Continue chronic atorvastatin. (3) CAD (coronary artery disease) Status: Chronic Assessment & Plan: He is on chronic treatment with Plavix and Imdur. Will hold Plavix for now until approved by Dr. Ratliff to restart. (4) CO (myocardial infarction) Assessment & Plan: CO in 2011 with two stents placed. Venous Thromboembolism Antithrombotics Is Pt On Any Antithrombotics?: No Problem Qualifiers (1) Hypertension: Hypertension type: essential hypertension Qualified Codes: I10 - Essential (primary) hypertension SELMA ENGLE [facility] Sep 16, 2018 15:20
[2018-09-16] MEDS: APAP/HYDROCODONE 325/5 TAB PO PRN ×2 (15:23→19:40)
[2018-09-16] MEDS ORDERED: NS(*) 0.9% 250 ML BAG 250 ML ONE (16:55)
[2018-09-16] MEDS: ceFAZolin(*) 2GM/D5W 50ML 50 ML IVPB SCH (17:01)
--- NOTE | 2018-09-16 17:24 | NUR ---
Physical Therapy Impression PT subjective eval completed with chart review and pt interview for home environment and goal setting. Pt agreeable to mobility treatment after completing meal. Physical Therapy Goals 1. Pt to be modified indep with bed mobility and supine to/from sit 2. Pt to be modified indep with sit to/from stand 3. Pt to tolerate ambulation x 100' with least restrictive device on even and uneven surfaces safely without loss of balance. 4. Pt to complete up/down 13 steps with rail and no loss of balance. Patient's Goals
--- NOTE | 2018-09-16 18:09 | NUR ---
Physical Therapy Impression Pt progressing very well and notes immediate improvement in dorsiflexion ability of R) foot. Without FWW, pt does demo a path deviation with a lean towards his right side. Pt encouraged to continue to use FWW for safety and balance until follow up with surgeon to discuss further rehab and re-eval balance. PT to address stairs and ambulation on uneven surfaces prior to anticipated d/c tomorrow. Physical Therapy Goals 1. Pt to be modified indep with bed mobility and supine to/from sit 2. Pt to be modified indep with sit to/from stand 3. Pt to tolerate ambulation x 100' with least restrictive device on even and uneven surfaces safely without loss of balance. 4. Pt to complete up/down 13 steps with rail and no loss of balance. Patient's Goals
[2018-09-16] MEDS: GABAPENTIN(*) 300 MG CAP 300 MG, GABAPENTIN(*) 100 MG CAP 100 MG PO SCH (20:34)
[2018-09-16] MEDS: DOCUSATE SODIUM 100 MG CAP PO SCH (20:34)
[2018-09-16] MEDS: CARVEDILOL 6.25 MG TAB PO SCH (20:46)
[2018-09-16] MEDS ORDERED: NON-FORMULARY MEDICATION MISCELL (Gabapentin 400 MG) PO SCH (21:00)
[2018-09-17] MEDS: ceFAZolin(*) 2GM/D5W 50ML 50 ML IVPB SCH ×2 (01:24→08:28)
[2018-09-17 02:59] VITALS: BP 135/77
[2018-09-17] MEDS: oxyCODONE HCL 5 MG CAP PO PRN (05:34)
[2018-09-17] MEDS ORDERED: OXYC-865 PO (07:28)
[2018-09-17] MEDS ORDERED: DOCU240C84 PO (07:29)
[2018-09-17] MEDS ORDERED: DIA5 PO (07:29)
[2018-09-17] MEDS: CARVEDILOL 6.25 MG TAB PO SCH (08:28)
[2018-09-17] MEDS: DOCUSATE SODIUM 100 MG CAP PO SCH (08:29)
[2018-09-17] MEDS: GABAPENTIN(*) 300 MG CAP 300 MG, GABAPENTIN(*) 100 MG CAP 100 MG PO SCH (08:29)
[2018-09-17 08:37] VITALS: BP 147/96
[2018-09-17] MEDS ORDERED: PANTOPRAZOLE SOD 40 MG TABEC PO SCH (09:00)
[2018-09-17] MEDS ORDERED: ISOSORBIDE MONONITR 30MG TABCR PO SCH (09:00)
[2018-09-17] MEDS ORDERED: ATORVASTATIN 40 MG TAB PO SCH (09:00)
[2018-09-17] MEDS ORDERED: LISINOPRIL 20 MG TAB PO SCH (09:00)
--- NOTE | 2018-09-17 10:53 | Hospitalist Progress Note ---
Subjective Progress Notes Subjective He was admitted s/p lumbar surgery. He had no acute events overnight. Patient Complains of: Cardiovascular: No: Chest Pain Respiratory: No: Shortness of Breath Physical Exam Vital Signs Date Time Temp Pulse Resp B/P (MAP) Pulse Ox O2 Delivery O2 Flow Rate FiO2 09/17/18 08:37 75 16 94 Room Air 09/17/18 08:37 147/96 (113) 09/17/18 04:35 1.5 09/17/18 02:59 98.5 Intake and Output 09/17/18 07:00 Intake Total 2100 ml Output Total 2330 ml Balance -230 ml Intake Oral 500 ml IV Total 1400 ml Blood Product 200 ml Output Urine Total 2330 ml # Voids 3 General Appearance: Alert, Awake, No Acute Distress, Afebrile Neuro: No Gross deficits Cardiovascular: Regular Rate and Rhythm Respiratory: No Respiratory Distress, Clear to Auscultation GI: Soft and Non-Tender Psych: Alert & Oriented X3, Appropriate Mood & Affect Assessment and Plan Problems: (1) Hypertension Status: Chronic Assessment & Plan: Continue chronic Lisinopril with hold parameters. He will resume HCTZ at home. (2) Hyperlipidemia Status: Chronic Assessment & Plan: Continue chronic atorvastatin. (3) CAD (coronary artery disease) Status: Chronic Assessment & Plan: He is on chronic treatment with Plavix and Imdur. Will hold Plavix for 2 days,per Dr. Ratliff. He will resume Friday. (4) AL (myocardial infarction) Assessment & Plan: AL in 2011 with two stents placed. Exam Sepsis Risk: No Definite Risk Problem Qualifiers (1) Hypertension: Hypertension type: essential hypertension Qualified Codes: I10 - Essential (primary) hypertension SELMA ENGLE CALL WORKER PERSON Sep 17, 2018 10:53
--- NOTE | 2018-09-17 12:10 | NUR ---
RN unable to discuss IS with patient prior to discharge Addendum: 09/17/18 at 1211 by JOSE DE LA FUENTE RN Amended: Links added.
== END 2018-09-17 11:10 | disposition home or self-care (01) | DRG 520 ==
LOC: OR 01:38 → MED 13:50
PROVIDERS: ADMIT Orthopaedic Surgery; ATTEND Orthopaedic Surgery
PROC: 01NB0ZZ Release Lumbar Nerve, Open Approach (ICD-10-PCS; 2018-09-16)
PROC: 30233R1 Transfusion of Nonautologous Platelets into Peripheral Vein, Percutaneous Approach (ICD-10-PCS; 2018-09-16)
PROC: 00PU0JZ Removal of Synthetic Substitute from Spinal Canal, Open Approach (ICD-10-PCS; principal; 2018-09-16 10:04)
DX: M48.061 Spinal stenosis, lumbar region without neurogenic claudication (principal); M54.16 Radiculopathy, lumbar region; T85.848A Pain due to other internal prosthetic devices, implants and grafts, initial encounter; I25.10 Atherosclerotic heart disease of native coronary artery without angina pectoris; I10 Essential (primary) hypertension; E78.5 Hyperlipidemia, unspecified; I25.2 Old myocardial infarction
CPT/HCPCS: 36415; 86900; 86901; 97161; J0690; J1100; J1170; J1200; J2250; J2405; J2704; J2795; J3010; J7040; J7050; P9035; Q0163

== ENCOUNTER 2018-10-09 10:57 | Emergency (ER) | payer MEDICARE, OTHER ==
--- NOTE | 2018-10-09 11:00 | ER Report ---
History and Physical Time Seen By MD: 10:58 HPI/ROS CHIEF COMPLAINT: weakness, balance issues, speech problems, falls HISTORY OF PRESENT ILLNESS: This is a 68 year old male. He has been having several weeks of issues related to being weak, especially lower extremities, and being off balance. He has tremors in both arms and legs, worse in the legs. Has had multiple back surgeries, the most recent surgery, September 16 of this year, for continued back pain and right L5 radiculopathy having L5-S1 laminectomy and foraminotomies. Has been healing well from the surgery. Also noting some expressive aphasia which has been worsening over the last few days. Mutiple falls, some with hitting his head. He denies headache. Has some episodes of blurred vision that come and go. No fevers or chills. No chest pain or shortness of breath. Eating and drinking normally. No nausea or vomiting. No abdominal pain. Tremor has been present for longer, but worsening, especially in the legs, but even today was not able to fill out the form on checking into the ER because of how shaky he is. Saw his primary care provider today who sent him to the ER for further evaluation. He does take Plavix. Has history of chronic pain with opiod treatment in the past, now on Tramadol and Gabapentin, no dosing changes recently. Has some chronic left leg numbness in the lower leg due to prior back problems which is unchanged. REVIEW OF SYSTEMS: Constitutional: No fever or chills. Eyes: As above. ENT: No sore throat. No congestion. Cardiovascular: No chest pain. No palpitations. Respiratory: No cough. No shortness of breath. Gastrointestinal: No abdominal pain. No nausea or vomiting. No change in bowel movements. No blood in the stool or melena. Genitourinary: No dysuria. No hematuria. No frequency Musculoskeletal: No extremity pain. Skin: No rashes. No bruising. Neurological: As above. Allergies: Coded Allergies: No Known Allergies (Verified Allergy, Mild, 09/11/17) zolpidem (Verified Adverse Reaction, Mild, SLEEP WALKS, 09/11/17) Home Meds Reported Medications Diazepam (VALIUM) 5 Mg Tablet, 5 MG PO Q8H, #16 TAB 0 Refills 09/17/18 Docusate Calcium (SURFAK) 240 Mg Capsule, 240 MG PO DAILY, #9 CAPSULE 09/17/18 Oxycodone Hcl/Acetaminophen (PERCOCET 5-325 MG TABLET) 1 Each Tablet, 1-2 EACH PO Q6H PRN for PAIN, #36 TAB 0 Refills 09/17/18 Tramadol Hcl (TRAMADOL HCL) 50 Mg Tablet, 50-100 MG PO PRN, TAB 09/10/18 Atorvastatin Calcium (ATORVASTATIN CALCIUM) 40 Mg Tablet, 1 TAB PO QAM, TAB 09/03/17 Lisinopril (LISINOPRIL) 20 Mg Tablet, 40 MG PO QAM, TAB 09/03/17 Gabapentin (GABAPENTIN) 400 Mg Capsule, 400 MG PO TID, CAPSULE 09/03/17 Esomeprazole Magnesium (NEXIUM) 40 Mg Capsule.dr, 1 CAP PO QAM, CAP 08/26/17 Celecoxib (CELEBREX) 200 Mg Capsule, 200 MG PO QAM, CAPSULE 08/26/17 Clopidogrel Bisulfate (CLOPIDOGREL) 75 Mg Tablet, 1 TAB PO QDAY, TAB Resume Friday09/20/18. 01/09/14 Hydrochlorothiazide (HYDROCHLOROTHIAZIDE) 25 Mg Tablet, 0.5 TAB PO QDAY TAKE ONE TABLET BY MOUTH EVERY DAY 01/09/14 Isosorbide Mononitrate (ISOSORBIDE MONONITRATE) 20 Mg Tablet, 30 MG PO QAM 01/09/14 Carvedilol (Coreg) 6.25 Mg Tab, 12.5 MG PO BID 07/16/11 Past Medical/Surgical History Coronary artery disease with history of stents in 2011, had femoral artery injury during catheterization, hypertension, hyperlipidemia, GERD, multiple back surgeries, orthopedic surgery on his knees in 1967 Reviewed Nurses Notes: Yes Hx Smoking: No (CHEWS 1 CAN EVERY 6-7 DAYS) Smoking Status: Never Smoker Hx Substance Use Disorder: No Hx Alcohol Use: Yes (1 NIGHTLY DRINK) Constitutional Vital Sign - Last 24 Hours 10/09/18 10/09/18 10/09/18 10/09/18 11:02 11:03 11:30 12:00 Temp 98.0 Pulse 67 62 64 Resp 16 24 10 B/P (MAP) 130/87 130/87 (101) 125/87 (100) 122/81 (95) Pulse Ox 89 92 92 O2 Delivery Room Air 10/09/18 12:30 Pulse 64 Resp 9 Pulse Ox 90 Physical Exam General Appearance: The patient is alert. No acute distress. Eyes: Pupils are equal, round. Reactive to light. No pallor, injection or icterus. Extraocular movements are intact. No nystagmus. ENT: Mucous membranes are moist. Normal oral mucosa. Posterior oropharynx is normal. Normal tympanic membranes and canals. Neck: Supple and non tender. No lymphadenopathy. Respiratory: Lungs are clear to auscultation. There are no retractions or accessory muscle use. Cardiovascular: Regular rate and rhythm. No murmurs, gallops or rubs. Normal capillary refill. No edema. Gastrointestinal: Abdomen is soft and non tender. Nondistended. Normal active bowel sounds. No costovertebral angle tenderness with percussion. Neurological: Alert and oriented x3. Cranial nerves with eye exam as noted above. Midline tongue, symmetric palate elevation, No facial weakness or loss of nasolabial fold, normal facial sensation, normal shoulder shrug. Extremities have tremor, does not appear to be a resting tremor, appears to worsen with intention, Normal upper extremity strength. Lower extremity strength is symmetric, but weak especially in hip flexors. Poor coordination. Has difficulty talking, with some episodes of expressive aphasia at times, and with mild dysarthria. Balance. Coordination. Skin: Warm and dry. No rashes. Musculoskeletal: Extremities are nontender. No tenderness in palpation of the cervical, thoracic and lumbar spine. Incision well healed on low back. DIFFERENTIAL DIAGNOSIS: After history and physical exam, differential diagnosis was considered for patient with falls, balance and weakness issues, speech changes, tremor, and would look for causes including but not limited to metabolic disturbance, toxic causes, stroke (bleed versus embolic), or other neurodegenerative causes. Medical Decision Making Data Points Result Diagram: 10/09/18 1106 10/09/18 1106 Laboratory Hematology Test 10/09/18 11:06 Red Blood Count 4.67 M/uL (4.00-5.60) Mean Corpuscular Volume 94.8 fL (80.0-96.0) Mean Corpuscular Hemoglobin 32.5 pg (26.0-33.0) Mean Corpuscular Hemoglobin Concent 34.3 g/dL (32.0-36.0) Red Cell Distribution Width 15.6 % (11.5-14.5) Mean Platelet Volume 8.9 fL (7.2-11.1) Neutrophils (%) (Auto) 48.7 % (39.4-72.5) Lymphocytes (%) (Auto) 33.6 % (17.6-49.6) Monocytes (%) (Auto) 14.5 % (4.1-12.4) Eosinophils (%) (Auto) 2.2 % (0.4-6.7) Basophils (%) (Auto) 1.0 % (0.3-1.4) Nucleated RBC Relative Count (auto) 0.1 /100WBC Neutrophils # (Auto) 1.7 K/uL (2.0-7.4) Lymphocytes # (Auto) 1.2 K/uL (1.3-3.6) Monocytes # (Auto) 0.5 K/uL (0.3-1.0) Eosinophils # (Auto) 0.1 K/uL (0.0-0.5) Basophils # (Auto) 0.0 K/uL (0.0-0.1) Nucleated RBC Absolute Count (auto) 0.00 K/uL Prothrombin Time 12.5 seconds (12.0-14.4) Prothromb Time International Ratio 0.94 Activated Partial Thromboplast Time 27 seconds (23-35) Sodium Level 140 mmol/L (137-145) Potassium Level 4.2 mmol/L (3.5-5.0) Chloride Level 102 mmol/L (98-107) Carbon Dioxide Level 28 mmol/L (22-30) Blood Urea Nitrogen 20 mg/dl (9-21) Creatinine 1.00 mg/dl (0.66-1.25) Glomerular Filtration Rate Calc > 60.0 Random Glucose 93 mg/dl (75-110) Calcium Level 9.1 mg/dl (8.4-10.2) Total Bilirubin 0.9 mg/dl (0.2-1.3) Aspartate Amino Transf (AST/SGOT) 75 U/L (0-35) Alanine Aminotransferase (ALT/SGPT) 65 U/L (0-56) Alkaline Phosphatase 112 U/L (0-126) Troponin I < 0.012 ng/ml Total Protein 6.9 g/dl (6.3-8.2) Albumin 4.2 g/dl (3.5-5.0) Serum Alcohol < 10 mg/dl Chemistry Test 10/09/18 11:06 White Blood Count 3.5 k/uL (4.5-11.0) Red Blood Count 4.67 M/uL (4.00-5.60) Hemoglobin 15.2 g/dL (14.0-18.0) Hematocrit 44.3 % (42.0-52.0) Mean Corpuscular Volume 94.8 fL (80.0-96.0) Mean Corpuscular Hemoglobin 32.5 pg (26.0-33.0) Mean Corpuscular Hemoglobin Concent 34.3 g/dL (32.0-36.0) Red Cell Distribution Width 15.6 % (11.5-14.5) Platelet Count 193 K/uL (150-450) Mean Platelet Volume 8.9 fL (7.2-11.1) Neutrophils (%) (Auto) 48.7 % (39.4-72.5) Lymphocytes (%) (Auto) 33.6 % (17.6-49.6) Monocytes (%) (Auto) 14.5 % (4.1-12.4) Eosinophils (%) (Auto) 2.2 % (0.4-6.7) Basophils (%) (Auto) 1.0 % (0.3-1.4) Nucleated RBC Relative Count (auto) 0.1 /100WBC Neutrophils # (Auto) 1.7 K/uL (2.0-7.4) Lymphocytes # (Auto) 1.2 K/uL (1.3-3.6) Monocytes # (Auto) 0.5 K/uL (0.3-1.0) Eosinophils # (Auto) 0.1 K/uL (0.0-0.5) Basophils # (Auto) 0.0 K/uL (0.0-0.1) Nucleated RBC Absolute Count (auto) 0.00 K/uL Prothrombin Time 12.5 seconds (12.0-14.4) Prothromb Time International Ratio 0.94 Activated Partial Thromboplast Time 27 seconds (23-35) Glomerular Filtration Rate Calc > 60.0 Calcium Level 9.1 mg/dl (8.4-10.2) Total Bilirubin 0.9 mg/dl (0.2-1.3) Aspartate Amino Transf (AST/SGOT) 75 U/L (0-35) Alanine Aminotransferase (ALT/SGPT) 65 U/L (0-56) Alkaline Phosphatase 112 U/L (0-126) Troponin I < 0.012 ng/ml Total Protein 6.9 g/dl (6.3-8.2) Albumin 4.2 g/dl (3.5-5.0) Serum Alcohol < 10 mg/dl Coagulation Test 10/09/18 11:06 Prothrombin Time 12.5 seconds Prothromb Time International Ratio 0.94 Activated Partial Thromboplast Time 27 seconds Toxicology Test 10/09/18 11:06 Serum Alcohol < 10 mg/dl EKG/Imaging EKG Interpretation 12 lead EKG: Rhythm: Normal sinus rhythm, rate 61 [place]: normal QRS: normal ST segments: normal Inverted T's in V1 through V3 Imaging EXAMINATION: CT Head without intravenous contrast HISTORY: Weakness. Expressive aphasia. TECHNIQUE: Axial images were obtained from the skull base to the vertex without intravenous contrast. Sagittal and coronal reformatted images are also submitted. One of the following dose optimization techniques was utilized in the performance of this exam: Automated exposure control; adjustment of the mA and/or kV according to the patient's size; or use of an iterative reconstruc tion technique. Specific details can be referenced in the facility's radiology CT exam operational policy. COMPARISON: None available. FINDINGS: Brain volume: Mild generalized volume loss. Ventricles: Negative. Acute ischemic changes: None. Hemorrhage: None. Masses / edema: None. Hansen-white: Negative. White matter: Mild to moderate patchy hypodensity in the periventricular and deep white matter. Vessels: Calcified plaque in the carotid siphons. Normal density in the dural venous sinuses. Extra-axial: Negative. Calvarium / skull base: Negative. Visualized sinuses / orbits: Leftward nasal septal deviation. IMPRESSION: 1. No acute intracranial abnormality. 2. Mild to moderate chronic white matter disease is nonspecific but most likely represents chronic microvascular ischemia. Report Dictated By: Javi Riggs MD at 10/09/2018 12:16 PM EXAMINATION: MR brain without IV contrast HISTORY: Weakness, speech problems COMPARISON: Noncontrast head CT of earlier today TECHNIQUE: Multi-planar, multi-sequence brain MRI was performed without IV contrast administration. FINDINGS: Brain volume: Mild generalized parenchymal atrophy with ex vacuo dilatation of the lateral and third ventricles Sagittal midline structures: Normal. Ventricles: Normal in caliber for the degree of overlying cortical volume loss. Acute ischemic changes: None. Hemorrhage: None. Masses / edema: None. Hansen-white: Negative. White matter lesions: There is patchy T2/FLAIR hyperintensity in the periventricular and subcortical white matter bilaterally which is nonspecific but may represent chronic small vessel ischemic change. Vessels: Normal T2 flow voids along the central intracranial vasculature. Extra-axial: None. Calvarium / scalp: Negative. Skull base: Negative. Visualized sinuses / orbits: Negative. Visualized upper neck: Negative. IMPRESSION: 1. No evidence of acute infarct or other acute intracranial pathology. 2. Mild parenchymal atrophy with chronic white matter changes compatible with chronic small vessel ischemic change. Report Dictated By: Andi Crenshaw MD at 10/09/2018 2:30 PM EXAMINATION: MRI Lumbar spine without intravenous contrast HISTORY: Weakness. COMPARISON: Lumbar spine CT dated 09/11/2017. Lumbar spine MRI dated 01/07/2014. TECHNIQUE: Multi-planar, multi-sequence lumbar spine MRI was performed without intravenous contrast administration. FINDINGS: Alignment: Minimal retrolisthesis of L2 over L3. 4 mm of retrolisthesis of L3 over L4. Vertebral marrow signal: Small hemangioma in the left L3 pedicle. Distal thoracic cord: Negative. Conus: negative, terminates at the mid L1 vertebral body Cauda equina: Negative. Paravertebral soft tissues: 4.4 x 4.1 x 3.8 cm hematoma in the L5-S1 laminectomy bed. No epidural extension. Visualized abdominal and pelvic structures: Negative. Disc Spaces: Lower thoracic spine: Negative. L1-2: Mild circumferential disc bulge and facet hypertrophy. Mild spinal canal and neural foraminal stenosis. No significant change. L2-3: Mild disc desiccation, disc height loss, circumferential disc bulge, and facet hypertrophy. Mild spinal canal and bilateral neural foraminal stenosis. No significant change. L3-4: Mild disc desiccation, disc height loss, circumferential disc bulge, and facet hypertrophy. No significant spinal canal stenosis. Moderate bilateral neural foraminal stenosis. No significant change. L4-5: Laminectomy. Bilateral pedicle screws. Interbody cage. Mild to moderate disc height loss. Circumferential disc osteophyte complex and facet hypertrophy. No significant spinal canal stenosis. [id number] bilateral neural foraminal stenosis. Decreased stenosis compared with 2013. L5-S1: Laminectomy. Moderate to severe disc height loss with circumferential disc osteophyte complex and facet hypertrophy. 4.4 x 4.1 x 3.8 cm hematoma in the laminectomy beds with no epidural extension. No significant spinal canal stenosis. [id number] bilateral neural foraminal stenosis. Stenosis is slightly decreased compared with 2013. IMPRESSION: 1. Multilevel lumbar spondylosis with postsurgical changes at L4-L5 and L5-S1. Stenosis is slightly decreased at L4-L5 and L5-S1 compared with 2014. 2. 4.4 x 4.1 x 3.8 cm hematoma in the L5-S1 laminectomy bed with no epidural extension. Report Dictated By: Javi Riggs MD at 10/09/2018 2:42 PM ED Course/Re-evaluation Clinical Indication for ER IV: Hydration, IV Access ED Course Labs obtained. EKG negative for acute problems. CT scan head negative for acute. Labs returned and negative for acute problem, does show mild increase in AST and ALT. MRI Brain and lumbar spine done, no acute problems noted. Discussed with PCP, and referred back for further evaluation, and recommended neurology follow- up evaluation. Decision to Disposition Date: Oct 09, 2018 Decision to Disposition Time: 15:47 Depart Departure Latest Vital Signs Vital Signs Date Time Temp Pulse Resp B/P (MAP) Pulse Ox O2 Delivery O2 Flow Rate FiO2 10/09/18 12:30 64 9 90 10/09/18 12:00 122/81 (95) 10/09/18 11:02 98.0 Room Air Impression: Primary Impression: Weakness Additional Impression: Balance problem Condition: Improved Disposition: HOME OR SELF-CARE Referrals: SHANTHI OROPEZA MD (PCP) Patient Instructions: Weakness (ED) Additional Instructions: We did not find a cause for the weakness, off balance feeling, speech problems or tremor today in the ER. We would recommend follow-up with neurology as we discussed, Dr. Perez in [place]. Call [facility] to work on getting this set up. We encourage good fluid intake and good dietary intake. No changes to medications at this time. Problem Qualifiers FAISAL GRANDA MD Oct 09, 2018 11:00
[2018-10-09] MEDS ORDERED: NS(*) 0.9% 1000 ML BAG 1,000 ML IV ONE (11:30)
[2018-10-09 11:37] LABS: PLATELET COUNT, AUTOMATED 193 K/uL (150-450)
[2018-10-09 12:03] LABS: INR 0.94
--- NOTE | 2018-10-09 12:04 | EKG ---
FACILITY: [facility] PATIENT NAME: ERVIN MARIEE : [id number] MR: [id number] V: [id number] EXAM DATE: ORDERING PHYSICIAN: FAISAL GRANDA TECHNOLOGIST: MATIAS Test Reason : weakness Blood Pressure : / mmHG Vent. Rate : 061 BPM Atrial Rate : 061 BPM P-R Int : 198 ms QRS Dur : 082 ms QT Int : 466 ms P-R-T Axes : 051 049 040 degrees QTc Int : 469 ms Normal sinus rhythm T wave abnormality, consider anterior ischemia When compared with ECG of 23-JUL-2018 04:34, No significant change was found Confirmed by MAME VOSS ([id number]) on 10/09/2018 12:46:50 PM Referred By: KALEE Confirmed By:MAME VOSS
--- NOTE | 2018-10-09 12:29 | RADIOLOGY IMAGING REPORT ---
FACILITY: [facility] PATIENT NAME: Kenny Garcia : 1950 MR: [id number] V: [id number] EXAM DATE: ORDERING PHYSICIAN: FAISAL GRANDA TECHNOLOGIST: Location: [facility] - [place], [place] Patient: Kenny Garcia : 1950 Visit/Account:[id number] Date of Sevice: 10/09/2018 EXAMINATION: CT Head without intravenous contrast HISTORY: Weakness. Expressive aphasia. TECHNIQUE: Axial images were obtained from the skull base to the vertex without intravenous contrast . Sagittal and coronal reformatted images are also submitted. One of the following dose optimization techniques was utilized in the performance of this exam: Autom ated exposure control; adjustment of the mA and/or kV according to the patient's size; or use of an i terative reconstruction technique. Specific details can be referenced in the facility's radiology C T exam operational policy. COMPARISON: None available. FINDINGS: Brain volume: Mild generalized volume loss. Ventricles: Negative. Acute ischemic changes: None. Hemorrhage: None. Masses / edema: None. Hansen-white: Negative. White matter: Mild to moderate patchy hypodensity in the periventricular and deep white matter. Vessels: Calcified plaque in the carotid siphons. Normal density in the dural venous sinuses. Extra-axial: Negative. Calvarium / skull base: Negative. Visualized sinuses / orbits: Leftward nasal septal deviation. IMPRESSION: 1. No acute intracranial abnormality. 2. Mild to moderate chronic white matter disease is nonspecific but most likely represents chronic m icrovascular ischemia. Report Dictated By: Javi Riggs MD at 10/09/2018 12:16 PM Report E-Signed By: Javi Riggs MD at 10/09/2018 12:22 PM [id number]
[2018-10-09 13:00] VITALS: BP 118/84
--- NOTE | 2018-10-09 14:41 | RADIOLOGY IMAGING REPORT ---
FACILITY: [facility] PATIENT NAME: Kenny Garcia : 1950 MR: [id number] V: [id number] EXAM DATE: ORDERING PHYSICIAN: FAISAL GRANDA TECHNOLOGIST: Location: [facility] [place] Patient: Kenny Garcia : 1950 Visit/Account:[id number] Date of Sevice: 10/09/2018 EXAMINATION: MR brain without IV contrast HISTORY: Weakness, speech problems COMPARISON: Noncontrast head CT of earlier today TECHNIQUE: Multi-planar, multi-sequence brain MRI was performed without IV contrast administration. FINDINGS: Brain volume: Mild generalized parenchymal atrophy with ex vacuo dilatation of the lateral and third ventricles Sagittal midline structures: Normal. Ventricles: Normal in caliber for the degree of overlying cortical volume loss. Acute ischemic changes: None. Hemorrhage: None. Masses / edema: None. Hansen-white: Negative. White matter lesions: There is patchy T2/FLAIR hyperintensity in the periventricular and subcortical white matter bilaterally which is nonspecific but may represent chronic small vessel ischemic change . Vessels: Normal T2 flow voids along the central intracranial vasculature. Extra-axial: None. Calvarium / scalp: Negative. Skull base: Negative. Visualized sinuses / orbits: Negative. Visualized upper neck: Negative. IMPRESSION: 1. No evidence of acute infarct or other acute intracranial pathology. 2. Mild parenchymal atrophy with chronic white matter changes compatible with chronic small vessel is chemic change. Report Dictated By: Andi Crenshaw MD at 10/09/2018 2:30 PM Report E-Signed By: Andi Crenshaw MD at 10/09/2018 2:34 PM WSN:[id number]
--- NOTE | 2018-10-09 14:59 | RADIOLOGY IMAGING REPORT ---
[facility] PATIENT NAME: Kenny Garcia : 1950 MR: [id number] V: [id number] EXAM DATE: ORDERING PHYSICIAN: FAISAL GRANDA TECHNOLOGIST: [place] [facility] [place] Patient: Kenny Garcia : 1950 Visit/Account:[id number] Date of Sevice: 10/09/2018 EXAMINATION: MRI Lumbar spine without intravenous contrast HISTORY: Weakness. COMPARISON: Lumbar spine CT dated 09/11/2017. Lumbar spine MRI dated 01/07/2014. TECHNIQUE: Multi-planar, multi-sequence lumbar spine MRI was performed without intravenous contrast administration. FINDINGS: Alignment: Minimal retrolisthesis of L2 over L3. 4 mm of retrolisthesis of L3 over L4. Vertebral marrow signal: Small hemangioma in the left L3 pedicle. Distal thoracic cord: Negative. Conus: negative, terminates at the mid L1 vertebral body Cauda equina: Negative. Paravertebral soft tissues: 4.4 x 4.1 x 3.8 cm hematoma in the L5-S1 laminectomy bed. No epidural ex tension. Visualized abdominal and pelvic structures: Negative. Disc Spaces: Lower thoracic spine: Negative. L1-2: Mild circumferential disc bulge and facet hypertrophy. Mild spinal canal and neural foraminal stenosis. No significant change. L2-3: Mild disc desiccation, disc height loss, circumferential disc bulge, and facet hypertrophy. Mi ld spinal canal and bilateral neural foraminal stenosis. No significant change. L3-4: Mild disc desiccation, disc height loss, circumferential disc bulge, and facet hypertrophy. No significant spinal canal stenosis. Moderate bilateral neural foraminal stenosis. No significant ch moy. L4-5: Laminectomy. Bilateral pedicle screws. Interbody cage. Mild to moderate disc height loss. C ircumferential disc osteophyte complex and facet hypertrophy. No significant spinal canal stenosis. [id number] bilateral neural foraminal stenosis. Decreased stenosis compared with 2014. L5-S1: Laminectomy. Moderate to severe disc height loss with circumferential disc osteophyte complex and facet hypertrophy. 4.4 x 4.1 x 3.8 cm hematoma in the laminectomy beds with no epidural extensi on. No significant spinal canal stenosis. [id number] bilateral neural foraminal stenosis. St enosis is slightly decreased compared with 2014. IMPRESSION: 1. Multilevel lumbar spondylosis with postsurgical changes at L4-L5 and L5-S1. Stenosis is slightly decreased at L4-L5 and L5-S1 compared with 2014. 2. 4.4 x 4.1 x 3.8 cm hematoma in the L5-S1 laminectomy bed with no epidural extension. Report Dictated By: Javi Riggs MD at 10/09/2018 2:42 PM Report E-Signed By: Javi Riggs MD at 10/09/2018 2:52 PM WSN:[id number]
[2018-10-10] MEDS ORDERED: LISI-374 PO (19:11)
[2018-10-10] MEDS ORDERED: ISOS30TA54 PO (19:21)
[2018-10-10] MEDS ORDERED: AMLO-127 PO (20:36)
[2018-10-10] MEDS ORDERED: CARV25TA78 PO (20:37)
== END 2018-10-09 16:00 | disposition home or self-care (01) ==
LOC: ER 11:15
DX: R53.1 Weakness (principal); R26.89 Other abnormalities of gait and mobility; R79.89 Other specified abnormal findings of blood chemistry; R47.01 Aphasia; I10 Essential (primary) hypertension; E78.5 Hyperlipidemia, unspecified; I25.810 Atherosclerosis of coronary artery bypass graft(s) without angina pectoris; K21.9 Gastro-esophageal reflux disease without esophagitis; R25.1 Tremor, unspecified; H53.8 Other visual disturbances; R20.0 Anesthesia of skin; Z91.81 History of falling
CPT/HCPCS: 70450; 70551; 72148; 84484; 85025; 85610; 85730; 93005; 96360; 99284; G0480; J7030; 80320; 82040; 82247; 82310; 82374; 82435; 82565; 82947; 84075; 84132; 84155; 84295; 84450; 84460; 84520

== ENCOUNTER 2018-10-10 13:14 | Inpatient (IN) | payer MEDICARE, OTHER ==
[~2018-10-10] VITALS: Ht 180.3 cm; Wt 87.3 kg
--- NOTE | 2018-10-10 13:31 | ER Report ---
History and Physical Time Seen By MD: 13:29 HPI/ROS CHIEF COMPLAINT: Weakness, difficulties with speech, stuttering HISTORY OF PRESENT ILLNESS: 68-year-old male patient presents to emergency room with complaint of weakness, difficulties with speech and stuttering. Patient states that this been going on for the past 8-10 days. He was seen by his primary care provider yesterday, he was referred to the emergency room where he had a CT scan MRI both of the brain as well as the lumbar spine all which come back normal. He was discharged home that time with no changes to his medications. Patient states that today he is feeling worse, he feels that he is very weak. He was unable to get himself up off the couch and had to get assistance from his . He states that when he hit something to hold onto that he seems to be doing better. He denies having any fevers, chills, nausea, vomiting or diarrhea. Patient's states [place] and was diagnosed with PRES syndrome. Patient also has a recent surgical history of a laminectomy. Patient states that he's been taking tramadol since his surgery, but has been taking Tramadol for approximately 3 years. REVIEW OF SYSTEMS: Respiratory: No cough, no dyspnea. Cardiovascular: No chest pain, no palpitations. Gastrointestinal: No vomiting, no abdominal pain. Musculoskeletal: No back pain. Allergies: Coded Allergies: zolpidem (Verified Adverse Reaction, Mild, SLEEP WALKS, 10/10/18) Home Meds Reported Medications Carvedilol (CARVEDILOL) 25 Mg Tablet, 1 TAB PO BID 10/10/18 Amlodipine Besylate (AMLODIPINE BESYLATE) 10 Mg Tablet, 1 TAB PO DAILY 10/10/18 Isosorbide Mononitrate (ISOSORBIDE MONONITRATE ER) 30 Mg Tab.er.24h, 1 TAB PO DAILY 10/10/18 Lisinopril (LISINOPRIL) 40 Mg Tablet, 1 TAB PO DAILY 10/10/18 Docusate Calcium (SURFAK) 240 Mg Capsule, 240 MG PO DAILY, #9 CAPSULE 09/17/18 Tramadol Hcl (TRAMADOL HCL) 50 Mg Tablet, 50-100 MG PO PRN, TAB 09/10/18 Atorvastatin Calcium (ATORVASTATIN CALCIUM) 40 Mg Tablet, 1 TAB PO QAM, TAB 09/03/17 Gabapentin (GABAPENTIN) 400 Mg Capsule, 1200 MG PO TID, CAPSULE 09/03/17 Esomeprazole Magnesium (NEXIUM) 40 Mg Capsule.dr, 1 CAP PO QAM, CAP 08/26/17 Celecoxib (CELEBREX) 200 Mg Capsule, 200 MG PO QAM, CAPSULE 08/26/17 Clopidogrel Bisulfate (CLOPIDOGREL) 75 Mg Tablet, 1 TAB PO QDAY, TAB Resume Friday09/20/18. 01/09/14 Hydrochlorothiazide (HYDROCHLOROTHIAZIDE) 25 Mg Tablet, 0.5 TAB PO QDAY TAKE ONE TABLET BY MOUTH EVERY DAY 01/09/14 Discontinued Reported Medications Diazepam (VALIUM) 5 Mg Tablet, 5 MG PO Q8H, #16 TAB 0 Refills 09/17/18 Oxycodone Hcl/Acetaminophen (PERCOCET 5-325 MG TABLET) 1 Each Tablet, 1-2 EACH PO Q6H PRN for PAIN, #36 TAB 0 Refills 09/17/18 Lisinopril (LISINOPRIL) 20 Mg Tablet, 40 MG PO QAM, TAB 09/03/17 Isosorbide Mononitrate (ISOSORBIDE MONONITRATE) 20 Mg Tablet, 30 MG PO QAM 01/09/14 Carvedilol (Coreg) 6.25 Mg Tab, 12.5 MG PO BID 07/16/11 Past Medical/Surgical History Patient has a past medical history of NC, hypertension, PRES syndrome, hyperlipidemia, reflux, urinary incontinence, back pain with multiple back surgeries, alcohol use. Patient has a surgical history of coronary stent, knee surgery, back surgery. Reviewed Nurses Notes: Yes Hx Smoking: No (CHEWS 1 CAN EVERY 6-7 DAYS) Smoking Status: Never Smoker Hx Substance Use Disorder: No Hx Alcohol Use: Yes (1 NIGHTLY DRINK) Constitutional Vital Sign - Last 24 Hours 10/10/18 10/10/18 10/10/18 10/10/18 13:14 13:27 13:30 13:32 Temp 98.9 Pulse 78 77 Resp 11 14 B/P (MAP) 121/82 (95) 114/80 (91) 114/80 Pulse Ox 90 92 O2 Delivery Room Air 10/10/18 10/10/18 10/10/18 10/10/18 13:44 13:55 14:00 14:14 Pulse 74 73 Resp 7 16 B/P (MAP) 113/71 (85) 106/73 (84) Pulse Ox 89 89 10/10/18 10/10/18 10/10/18 10/10/18 14:30 14:35 15:00 15:05 Pulse 72 70 Resp 26 29 B/P (MAP) 111/73 (86) 119/88 (98) Pulse Ox 88 95 10/10/18 10/10/18 10/10/18 10/10/18 15:10 15:30 15:40 16:00 Pulse 71 80 Resp 28 31 B/P (MAP) 124/82 (96) 129/82 (98) Pulse Ox 97 93 10/10/18 10/10/18 10/10/18 10/10/18 16:10 16:30 16:35 17:00 Pulse 67 68 Resp 23 22 B/P (MAP) 122/81 (95) 135/90 (105) Pulse Ox 94 96 10/10/18 10/10/18 10/10/18 10/10/18 17:05 17:10 17:30 17:40 Pulse 63 63 63 Resp 17 19 19 B/P (MAP) 119/82 (94) Pulse Ox 94 95 94 10/10/18 10/10/18 10/10/18 18:00 18:05 18:10 Pulse 61 66 Resp 15 21 B/P (MAP) 129/88 (102) Pulse Ox 89 Physical Exam General Appearance: The patient is alert, has no immediate need for airway protection and no current signs of toxicity. Respiratory: Chest is non tender, lungs are clear to auscultation. Cardiac: regular rate and rhythm Gastrointestinal: Abdomen is soft and non tender, no masses, bowel sounds normal. Musculoskeletal: Neck: Neck is supple and non tender. Extremities have full range of motion and are non tender. Skin: No rashes or lesions. Neuro: Patient is alert and oriented 4, cranial nerves II through XII grossly intact. Patient does have some stuttering and very mild difficulty finding words. Patient had good strength in upper extremities and mild weakness in bilateral lower extremities. DIFFERENTIAL DIAGNOSIS: After history and physical exam differential diagnosis was considered for infection, recurrence of the PRES syndrome, medication reaction, TIA. Medical Decision Making Data Points Result Diagram: 10/10/18 1353 10/10/18 1353 Laboratory Hematology Test 10/10/18 00:00 10/10/18 13:53 10/10/18 16:53 Red Blood Count 4.34 M/uL (4.00-5.60) Mean Corpuscular Volume 94.1 fL (80.0-96.0) Mean Corpuscular Hemoglobin 32.8 pg (26.0-33.0) Mean Corpuscular Hemoglobin Concent 34.8 g/dL (32.0-36.0) Red Cell Distribution Width 15.1 % (11.5-14.5) Mean Platelet Volume 8.6 fL (7.2-11.1) Neutrophils (%) (Auto) 72.5 % (39.4-72.5) Lymphocytes (%) (Auto) 12.9 % (17.6-49.6) Monocytes (%) (Auto) 13.0 % (4.1-12.4) Eosinophils (%) (Auto) 0.8 % (0.4-6.7) Basophils (%) (Auto) 0.8 % (0.3-1.4) Nucleated RBC Relative Count (auto) 0.0 /100WBC Neutrophils # (Auto) 3.5 K/uL (2.0-7.4) Lymphocytes # (Auto) 0.6 K/uL (1.3-3.6) Monocytes # (Auto) 0.6 K/uL (0.3-1.0) Eosinophils # (Auto) 0.0 K/uL (0.0-0.5) Basophils # (Auto) 0.0 K/uL (0.0-0.1) Nucleated RBC Absolute Count (auto) 0.00 K/uL Sodium Level 139 mmol/L (137-145) Potassium Level 4.1 mmol/L (3.5-5.0) Chloride Level 104 mmol/L (98-107) Carbon Dioxide Level 26 mmol/L (22-30) Blood Urea Nitrogen 14 mg/dl (9-21) Creatinine 0.70 mg/dl (0.66-1.25) Glomerular Filtration Rate Calc > 60.0 Random Glucose 144 mg/dl (75-110) Calcium Level 8.8 mg/dl (8.4-10.2) Magnesium Level 1.7 mg/dl (1.7-2.2) Total Bilirubin 0.8 mg/dl (0.2-1.3) Aspartate Amino Transf (AST/SGOT) 42 U/L (0-35) Alanine Aminotransferase (ALT/SGPT) 56 U/L (0-56) Alkaline Phosphatase 114 U/L (0-126) Total Protein 6.5 g/dl (6.3-8.2) Albumin 3.7 g/dl (3.5-5.0) CSF Appearance Clear (CLEAR) CSF Color Colorless (COLORLESS) CSF WBC 9 /mm3 (0-5) CSF RBC 497 /mm3 CSF Glucose 68 mg/dl CSF Lactate Dehydrogenase 110 U/L CSF Total Protein 90 mg/dl (15-50) Chemistry Test 10/10/18 00:00 10/10/18 13:53 10/10/18 16:53 White Blood Count 4.8 k/uL (4.5-11.0) Red Blood Count 4.34 M/uL (4.00-5.60) Hemoglobin 14.2 g/dL (14.0-18.0) Hematocrit 40.9 % (42.0-52.0) Mean Corpuscular Volume 94.1 fL (80.0-96.0) Mean Corpuscular Hemoglobin 32.8 pg (26.0-33.0) Mean Corpuscular Hemoglobin Concent 34.8 g/dL (32.0-36.0) Red Cell Distribution Width 15.1 % (11.5-14.5) Platelet Count 153 K/uL (150-450) Mean Platelet Volume 8.6 fL (7.2-11.1) Neutrophils (%) (Auto) 72.5 % (39.4-72.5) Lymphocytes (%) (Auto) 12.9 % (17.6-49.6) Monocytes (%) (Auto) 13.0 % (4.1-12.4) Eosinophils (%) (Auto) 0.8 % (0.4-6.7) Basophils (%) (Auto) 0.8 % (0.3-1.4) Nucleated RBC Relative Count (auto) 0.0 /100WBC Neutrophils # (Auto) 3.5 K/uL (2.0-7.4) Lymphocytes # (Auto) 0.6 K/uL (1.3-3.6) Monocytes # (Auto) 0.6 K/uL (0.3-1.0) Eosinophils # (Auto) 0.0 K/uL (0.0-0.5) Basophils # (Auto) 0.0 K/uL (0.0-0.1) Nucleated RBC Absolute Count (auto) 0.00 K/uL Glomerular Filtration Rate Calc > 60.0 Calcium Level 8.8 mg/dl (8.4-10.2) Magnesium Level 1.7 mg/dl (1.7-2.2) Total Bilirubin 0.8 mg/dl (0.2-1.3) Aspartate Amino Transf (AST/SGOT) 42 U/L (0-35) Alanine Aminotransferase (ALT/SGPT) 56 U/L (0-56) Alkaline Phosphatase 114 U/L (0-126) Total Protein 6.5 g/dl (6.3-8.2) Albumin 3.7 g/dl (3.5-5.0) CSF Appearance Clear (CLEAR) CSF Color Colorless (COLORLESS) CSF WBC 9 /mm3 (0-5) CSF RBC 497 /mm3 CSF Glucose 68 mg/dl CSF Lactate Dehydrogenase 110 U/L CSF Total Protein 90 mg/dl (15-50) Microbiology Microbiology Date/Time Source Procedure Growth Status 10/10/18 16:53 Cerebrospinal Fluid Gram Stain - Final Resulted 10/10/18 16:53 Cerebrospinal Fluid CSF Culture Pending Resulted ED Course/Re-evaluation ED Course Patient was admitted to exam room, history and physical were obtained. Differential diagnoses were considered. On examination lungs are clear, heart is regular, abdomen is soft nontender. Patient does have good strength in bilateral upper extremities, he has good strength with flexion of the feet. An IV was started, a CBC, CMP were done. The lab results were unremarkable. I did call and discuss the case with Dr. Johnson, neurologist at [facility]. He felt that with the worsening weakness and the speech difficulties that the patient should likely be admitted. If were not able to admit here that he recommended admission in [place]. I discussed the case with Dr. Diane Tian, hospitalist, who initially thought that it be better to go ahead and transfer the patient. She spoke with a colleague, came down and talked with patient. She decided that a lumbar puncture Lynda beneficial, there is concern that the hematoma could be a source of infection. A lumbar puncture was performed as described below. Patient had clear CSF and 9 white blood cells on the analysis. She did agree to accept the patient for admission here with a diagnosis of weakness and expressive aphasia. We did get the Gram stain back which showed rare gram-positive cocci. She is going to start antibiotics and patient was admitted to the ICU. I discussed this with the patient who verbalized understanding and agreement with plan. Procedure: Lumbar puncture. Indication: Weakness, expressive aphasia After verbal informed consent from patient explaining the risks including infection, bleeding, and neurologic damage, a lumbar puncture was performed after the patient was prepped and draped in the usual fashion. The back was anesthetized with 1% lidocaine. Approximately 4 cc of clear fluid was obtained. Opening pressure was not obtained. There were no complications. The procedure was performed by myself under direct supervision of Dr. Anderson. Decision to Disposition Date: Oct 10, 2018 Decision to Disposition Time: 18:40 Depart Departure Latest Vital Signs Vital Signs Date Time Temp Pulse Resp B/P (MAP) Pulse Ox O2 Delivery O2 Flow Rate FiO2 10/10/18 18:10 66 21 89 10/10/18 18:00 129/88 (102) 10/10/18 13:32 98.9 Room Air Impression: Primary Impression: Weakness Additional Impression: Expressive aphasia Condition: Condition Unchanged Disposition: Admitted from ER Referrals: SHANTHI OROPEZA MD (PCP) Problem Qualifiers SANDRA RUANO Oct 10, 2018 13:31
[2018-10-10 14:05] LABS: PLATELET COUNT, AUTOMATED 153 K/uL (150-450)
[2018-10-10] MEDS ORDERED: NS(*) 0.9% 1000 ML BAG 1,000 ML IV PRN (18:58)
[2018-10-10] MEDS ORDERED: INFLUENZA VIRUS VAC 0.5ML SYR IM ONLY ONE (19:00)
[2018-10-10] MEDS ORDERED: ACETAMINOPHEN 325 MG TAB PO PRN (19:00)
[2018-10-10] MEDS ORDERED: LISI-374 PO (19:11)
[2018-10-10] MEDS ORDERED: ISOS30TA54 PO (19:21)
[2018-10-10 19:40] VITALS: BP 145/99
[2018-10-10 20:00] VITALS: BP 158/99
[2018-10-10] MEDS ORDERED: VANCOMYCIN(*) 1 GM VIAL 1 GM, VANCOMYCIN HCL 0.750 GM VIAL 0.75 GM in NS(*) 0.9% 500 ML... IVPB ONE (20:05)
[2018-10-10] MEDS ORDERED: HYDROmorphone* 1 MG/ML 1 MG/ML ML IVP PRN (20:25)
[2018-10-10] MEDS ORDERED: AMLO-127 PO (20:36)
[2018-10-10] MEDS ORDERED: CARV25TA78 PO (20:37)
[2018-10-10] MEDS ORDERED: CARVEDILOL 6.25 MG TAB PO SCH (21:00)
[2018-10-10] MEDS: ATORVASTATIN 40 MG TAB PO SCH (21:10)
[2018-10-10] MEDS: GABAPENTIN 300 MG CAP PO SCH (21:10)
[2018-10-10] MEDS: DOCUSATE SODIUM 100 MG CAP PO SCH (21:10)
[2018-10-10] MEDS ORDERED: ACYCLOVIR 500 MG/10 ML VIAL ONE (21:10)
[2018-10-10] MEDS ORDERED: NS 0.9% ONE (21:13)
[2018-10-10] MEDS ORDERED: VANCOMYCIN 1 GM VIAL ONE (21:14)
--- NOTE | 2018-10-10 21:33 | History & Physical ---
History of Present Illness Chief Complaint Weakness, balance issues, confusion, difficulty with speech. History of Present Illness The patient is a 68 year old male with PMH significant for CAD, lumbar disc disease and recent lumbar laminectomy who presents with complaints of worsening neurologic issues since about one week after a laminectomy on September 16. The patient states he had a laminectomy with Dr. Ratliff on September 16 and was discharged on September 17. He did very well for a week. He then mowed a large (3200 sq foot) lawn on a riding mower. The patient's states this was quite a bumpy ride. About that time he started having some weakness in his R leg and then in his L leg. The patient then mowed the lawn again. He has had a history of cervical spine issues in the past, but has not had trouble with his c-spine recently. He denies fever or chills. He did notice that he started having more pain at the surgical site. The patient then began having difficulty with his speech. He could think of what he wanted to say, but could not get the words out. He also started stuttering. He did see his PCP yesterday. He was sent to the ER for evaluation and had an MRI of the brain which showed no acute issues. An MRI of his lumbar spine did show a 4.4 x 4.1 x 3.8 cm hematoma in the L5-S1 laminectomy bed with no epidural extension. This am his noticed he was frustrated because he could not figure out how to turn off the TV with his remote. He was noted to be confused. Later he was lying on the couch and could not get up on his own due to weakness. She brought him back to the ER for evaluation. 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 [place] and was life flighted directly from his [place] to [place] for evaluation. He recovered from this incident without residual issues. History Problems: (1) History of lumbar surgery Status: Resolved Comment: Multiple. (2) S/P total knee arthroplasty Status: Resolved (3) Urinary incontinence Status: Chronic (4) History of heart artery stent Status: Chronic (5) Hearing loss Status: Chronic (6) NV (myocardial infarction) Status: Resolved (7) Hypertension Status: Chronic (8) CAD (coronary artery disease) Status: Chronic (9) Hyperlipidemia Status: Chronic Home Meds Reported Medications Carvedilol (CARVEDILOL) 25 Mg Tablet, 1 TAB PO BID 10/10/18 Amlodipine Besylate (AMLODIPINE BESYLATE) 10 Mg Tablet, 1 TAB PO DAILY 10/10/18 Isosorbide Mononitrate (ISOSORBIDE MONONITRATE ER) 30 Mg Tab.er.24h, 1 TAB PO DAILY 10/10/18 Lisinopril (LISINOPRIL) 40 Mg Tablet, 1 TAB PO DAILY 10/10/18 Docusate Calcium (SURFAK) 240 Mg Capsule, 240 MG PO DAILY, #9 CAPSULE 09/17/18 Tramadol Hcl (TRAMADOL HCL) 50 Mg Tablet, 50-100 MG PO PRN, TAB 09/10/18 Atorvastatin Calcium (ATORVASTATIN CALCIUM) 40 Mg Tablet, 1 TAB PO QAM, TAB 09/03/17 Gabapentin (GABAPENTIN) 400 Mg Capsule, 1200 MG PO TID, CAPSULE 09/03/17 Esomeprazole Magnesium (NEXIUM) 40 Mg Capsule.dr, 1 CAP PO QAM, CAP 08/26/17 Celecoxib (CELEBREX) 200 Mg Capsule, 200 MG PO QAM, CAPSULE 08/26/17 Clopidogrel Bisulfate (CLOPIDOGREL) 75 Mg Tablet, 1 TAB PO QDAY, TAB Resume Friday09/20/18. 01/09/14 Hydrochlorothiazide (HYDROCHLOROTHIAZIDE) 25 Mg Tablet, 0.5 TAB PO QDAY TAKE ONE TABLET BY MOUTH EVERY DAY 01/09/14 Discontinued Reported Medications Diazepam (VALIUM) 5 Mg Tablet, 5 MG PO Q8H, #16 TAB 0 Refills 09/17/18 Oxycodone Hcl/Acetaminophen (PERCOCET 5-325 MG TABLET) 1 Each Tablet, 1-2 EACH PO Q6H PRN for PAIN, #36 TAB 0 Refills 09/17/18 Lisinopril (LISINOPRIL) 20 Mg Tablet, 40 MG PO QAM, TAB 09/03/17 Isosorbide Mononitrate (ISOSORBIDE MONONITRATE) 20 Mg Tablet, 30 MG PO QAM 01/09/14 Carvedilol (Coreg) 6.25 Mg Tab, 12.5 MG PO BID 07/16/11 Allergies: Coded Allergies: zolpidem (Verified Adverse Reaction, Mild, SLEEP WALKS, 10/10/18) Patient History: FH: heart disease MOTHER Other Social/Family Hx The patient is and lives with his in [place]. He is a branch library clerk. Hx Smoking: No (CHEWS 1 CAN EVERY 6-7 DAYS) Smoking Status: Never Smoker Tobacco Used: Smokeless Caffeine Intake: Coffee Caffeine/Cups Per Day: 2 CPD Hx Alcohol Use: Yes (1 NIGHTLY DRINK) Hx Substance Use Disorder: No Social Drug Use: Never History of IV Drug Use: No Review of Systems Constitutional: No Fever Neurological: Confusion, Weakness Eyes: No Vision Change ENT: Hearing Loss Cardiovascular: No Chest Pain Respiratory: No Shortness of Breath Gastrointestinal: No Nausea, No Vomiting Genitourinary: No Dysuria Musculoskeletal: Pain (R leg, back.) Psychiatric: No Depression, No Anxiety Exam Vital Signs Vital Signs Date Time Temp Pulse Resp B/P (MAP) Pulse Ox O2 Delivery O2 Flow Rate FiO2 10/10/18 20:14 96 Nasal Cannula 2.0 10/10/18 19:00 112/84 (93) 10/10/18 18:40 67 19 10/10/18 13:32 98.9 General Appearance: Alert, Awake, No Acute Distress Neuro: Other (Initial evaluation in ER revealed tremor, myoclonic jerking and R sided weakness compared to the L. The patient is R handed. Balance was unsteady with standing. Occasional word finding issues. Repeat exam in ICU (overflow) showed the tremor and work finding to be resolved. Still with mild R sided weakness. ) Eyes: PERRLA Cardiovascular: Regular Rate and Rhythm Respiratory: Clear to Auscultation GI: Abd Soft and Non-Tender Extremities: Warm, Perfused Integumentary: Skin Intact without Lesion / Mass Psych: Appropriate Mood & Affect Medical Decision Making Data Points Result Diagram: 10/10/18 1353 10/10/18 1353 Item Value Date Time Calcium Level 8.8 mg/dl 10/10/18 1353 Total Bilirubin 0.8 mg/dl 10/10/18 1353 Aspartate Amino Transf (AST/SGOT) 42 U/L H 10/10/18 1353 Alanine Aminotransferase (ALT/SGPT) 56 U/L 10/10/18 1353 Alkaline Phosphatase 114 U/L 10/10/18 1353 Total Protein 6.5 g/dl 10/10/18 1353 Albumin 3.7 g/dl 10/10/18 1353 Magnesium Level 1.7 mg/dl 10/10/18 1353 CSF Appearance Clear 10/10/18 1653 CSF Color Colorless 10/10/18 1653 CSF WBC 9 /mm3 H 10/10/18 1653 CSF RBC 497 /mm3 10/10/18 1653 CSF Glucose 68 mg/dl 10/10/18 1653 CSF Lactate Dehydrogenase 110 U/L 10/10/18 1653 CSF Total Protein 90 mg/dl H 10/10/18 1653 CSF fluid culture pending. Gram stain shows rare gram positive cocci. EKG / Imaging Imaging FACILITY: [facility] PATIENT NAME: Kenny Garcia : 1950 MR: [id number] V: [id number] EXAM DATE: [id number] ORDERING PHYSICIAN: FAISAL GRANDA TECHNOLOGIST: Location: [facility] - [place] Patient: Kenny Garcia : 1950 Visit/Account:[id number] Date of Sevice: 10/09/2018 EXAMINATION: MRI Lumbar spine without intravenous contrast HISTORY: Weakness. COMPARISON: Lumbar spine CT dated 09/11/2017. Lumbar spine MRI dated 01/07/2014. TECHNIQUE: Multi-planar, multi-sequence lumbar spine MRI was performed without intravenous contrast administration. FINDINGS: Alignment: Minimal retrolisthesis of L2 over L3. 4 mm of retrolisthesis of L3 over L4. Vertebral marrow signal: Small hemangioma in the left L3 pedicle. Distal thoracic cord: Negative. Conus: negative, terminates at the mid L1 vertebral body Cauda equina: Negative. Paravertebral soft tissues: 4.4 x 4.1 x 3.8 cm hematoma in the L5-S1 laminectomy bed. No epidural extension. Visualized abdominal and pelvic structures: Negative. Disc Spaces: Lower thoracic spine: Negative. L1-2: Mild circumferential disc bulge and facet hypertrophy. Mild spinal canal and neural foraminal stenosis. No significant change. L2-3: Mild disc desiccation, disc height loss, circumferential disc bulge, and facet hypertrophy. Mild spinal canal and bilateral neural foraminal stenosis. No significant change. L3-4: Mild disc desiccation, disc height loss, circumferential disc bulge, and facet hypertrophy. No significant spinal canal stenosis. Moderate bilateral neural foraminal stenosis. No significant change. L4-5: Laminectomy. Bilateral pedicle screws. Interbody cage. Mild to moderate disc height loss. Circumferential disc osteophyte complex and facet hypertrophy. No significant spinal canal stenosis. [id number] bilateral neural foraminal stenosis. Decreased stenosis compared with 2014. L5-S1: Laminectomy. Moderate to severe disc height loss with circumferential disc osteophyte complex and facet hypertrophy. 4.4 x 4.1 x 3.8 cm hematoma in the laminectomy beds with no epidural extension. No significant spinal canal stenosis. [id number]-yc-[id number] bilateral neural foraminal stenosis. Stenosis is slightly decreased compared with 2013. IMPRESSION: 1. Multilevel lumbar spondylosis with postsurgical changes at L4-L5 and L5-S1. Stenosis is slightly decreased at L4-L5 and L5-S1 compared with 2013. 2. 4.4 x 4.1 x 3.8 cm hematoma in the L5-S1 laminectomy bed with no epidural extension. Report Dictated By: Javi Riggs MD at 10/09/2018 2:42 PM Report E-Signed By: Javi Riggs MD at 10/09/2018 2:52 PM WSN:[id number] FACILITY: [facility] PATIENT NAME: Kenny Garcia : 1950 MR: [id number] V: [id number] EXAM DATE: ORDERING PHYSICIAN: FAISAL GRANDA TECHNOLOGIST: Location: [facility] - [place] Patient: Kenny Garcia : 1950 Visit/Account:[id number] Date of Sevice: 10/09/2018 EXAMINATION: MR brain without IV contrast HISTORY: Weakness, speech problems COMPARISON: Noncontrast head CT of earlier today TECHNIQUE: Multi-planar, multi-sequence brain MRI was performed without IV contrast administration. FINDINGS: Brain volume: Mild generalized parenchymal atrophy with ex vacuo dilatation of the lateral and third ventricles Sagittal midline structures: Normal. Ventricles: Normal in caliber for the degree of overlying cortical volume loss. Acute ischemic changes: None. Hemorrhage: None. Masses / edema: None. Hansen-white: Negative. White matter lesions: There is patchy T2/FLAIR hyperintensity in the periventricular and subcortical white matter bilaterally which is nonspecific but may represent chronic small vessel ischemic change. Vessels: Normal T2 flow voids along the central intracranial vasculature. Extra-axial: None. Calvarium / scalp: Negative. Skull base: Negative. Visualized sinuses / orbits: Negative. Visualized upper neck: Negative. IMPRESSION: 1. No evidence of acute infarct or other acute intracranial pathology. 2. Mild parenchymal atrophy with chronic white matter changes compatible with chronic small vessel ischemic change. Report Dictated By: Andi Crenshaw MD at 10/09/2018 2:30 PM Report E-Signed By: Andi Crenshaw MD at 10/09/2018 2:34 PM WSN:[id number] Pre-Admit Course Medical Record Review: Yes Assessment and Plan Problems: (1) Neurologic abnormality Status: Acute Assessment & Plan: The patient presents with multiple neurologic issues. Brain MRI from 10/09 is unremarkable. Lumbar MRI shows a hematoma but no evidence of cord compromise. His lumbar puncture from the ER was traumatic and he did have many RBCs with some WBCs. His CSF protein is high at 90. Gram stain of the CSF shows rare gram positive cocci. Viral, bacterial and fungal cultures are pending. HSV studies pending as well. Neurology in [place] was consulted and recommended imaging of the thoracic and cervical spines. MRIs ordered for the am. Will start coverage for potential CSF infection related to his recent lumbar surgery. Will start Vancomycin and cefepime. Will add acyclovir while awaiting HSV studies. The patient is also on a high dose of gabapentin. His symptoms improved as he sat in the ER without his usual medications. Will wean down his gabapentin and hold Tramadol which can increase the side effects of gabapentin. Monitor with neuro checks. (2) CAD (coronary artery disease) Status: Chronic Assessment & Plan: Continue carvedilol and lisinopril. He is on Plavix as well. Will hold for now due to LP and hematoma noted on lumbar MRI. (3) Hyperlipidemia Status: Chronic Assessment & Plan: Continue atorvastatin 40mg at HS. (4) Hypertension Status: Chronic Assessment & Plan: Continue amlodipine, carvedilol and lisinopril. Time Spent on Plan of Care: < 30 min Venous Thromboembolism Antithrombotics Is Pt On Any Antithrombotics?: Yes Exam Sepsis Risk: No Definite Risk PACO MCGHEE MD Oct 10, 2018 21:33
[2018-10-10] MEDS: CEFEPIME HCL 2 GM VIAL IVP SCH (23:28)
[2018-10-10] MEDS: NS 0.9% IVPB SCH (23:46)
[2018-10-10] MEDS: ACYCLOVIR IVPB SCH (23:46)
[2018-10-10 23:48] VITALS: BP 123/78
[2018-10-11 06:26] VITALS: BP 153/93
[2018-10-11] MEDS: PANTOPRAZOLE SOD 40 MG TABEC PO SCH (06:29)
[2018-10-11] MEDS: CEFEPIME HCL 2 GM VIAL IVP SCH (06:30)
[2018-10-11] MEDS: ACYCLOVIR IVPB SCH (06:30)
[2018-10-11] MEDS: NS 0.9% IVPB SCH (06:30)
[2018-10-11] MEDS ORDERED: HYDROmorphone HCL 2 MG/ML SDV IVP PRN (08:10)
[2018-10-11 08:14] LABS: PLATELET COUNT, AUTOMATED 124 K/uL (150-450)
[2018-10-11 08:18] VITALS: BP 164/98
--- NOTE | 2018-10-11 10:32 | RADIOLOGY IMAGING REPORT ---
FACILITY: [facility] PATIENT NAME: Kenny Garcia : 1950 MR: [id number] V: [id number] EXAM DATE: ORDERING PHYSICIAN: PACO MCGHEE TECHNOLOGIST: Location: [facility] - [place] Patient: Kenny Garcia : 1950 Visit/Account:[id number] Date of Sevice: 10/11/2018 EXAMINATION: MRI cervical spine without IV contrast HISTORY: Right-sided weakness, normal MRI of the brain. COMPARISON: CT head and brain MRI from 10/09/2018. TECHNIQUE: Multi-planar, multi-sequence cervical spine MRI was performed without intravenous contras t administration. FINDINGS: Alignment: Grade 1 retrolisthesis at C3-4 measuring 2 mm. Vertebral marrow signal: Mild fatty degenerative endplate changes at C3-4 and a few small Schmorl's n odes. Cranio-cervical junction: Negative. Visualized posterior fossa: Negative. Soft tissues: Negative. Cervical cord: Negative. Disc spaces: C1-2: Negative. C2-3: Small posterior osteophyte disc complex, bilateral facet hypertrophy and mild ligamentum flavum laxity. Moderate central canal stenosis without foraminal stenosis. C3-4: Mild disc space narrowing with a broad-based posterior osteophyte disc complex, bilateral uncov ertebral and facet hypertrophy. Severe central canal stenosis with mild mass effect on the cervical c ord. The AP diameter of the spinal canal measures 6 mm. Moderate to severe bilateral foraminal stenos is. C4-5: Broad-based posterior osteophyte disc complex, mild bilateral uncovertebral and facet hypertrop hy. Mild central canal stenosis and moderate to severe left foraminal stenosis. C5-6: Mild disc space narrowing with anterior bony spurring, a broad-based posterior osteophyte disc complex, mild bilateral uncovertebral and facet hypertrophy. Moderate central canal stenosis and mode rate to severe bilateral foraminal stenosis. C6-7: Broad-based posterior osteophyte disc complex eccentric to the left with anterior bony spurring and mild bilateral uncovertebral hypertrophy. Mild bilateral foraminal stenosis without significant central canal stenosis. C7-T1: Mild bilateral facet hypertrophy without significant central canal or foraminal stenosis. Upper thoracic spine: Negative. IMPRESSION: 1. Multilevel degenerative disc disease, facet and uncovertebral arthropathy is worst at C3-4 where t here is severe spinal stenosis and moderate to severe bilateral foraminal stenosis. Please see the fi ndings for description of individual level disease. 2. Grade 1 degenerative retrolisthesis at C3-4. Report Dictated By: Rola Garza MD at 10/11/2018 10:20 AM Report E-Signed By: Rola Garza MD at 10/11/2018 10:25 AM WSN:[id number]
--- NOTE | 2018-10-11 10:37 | RADIOLOGY IMAGING REPORT ---
FACILITY: [facility] PATIENT NAME: Kenny Garcia : 1950 MR: [id number] V: [id number] EXAM DATE: ORDERING PHYSICIAN: PACO MCGHEE TECHNOLOGIST: Location: [facility] - [place] Patient: Kenny Garcia : 1950 Visit/Account:[id number] Date of Sevice: 10/11/2018 EXAMINATION: MRI thoracic spine without IV contrast HISTORY: Right-sided weakness, recent normal brain MRI. Recent laminectomy 09/16/2018, neurologic cynthia nges. COMPARISON: CT head and brain MRI, and lumbar spine MRI from 10/09/2018. TECHNIQUE: Multi-planar, multi-sequence thoracic spine MRI was performed without intravenous contras t administration. FINDINGS: Alignment: Mild leftward curvature of the thoracic spine without focal listhesis. Vertebral marrow signal: There are a few small Schmorl's nodes and a benign hemangioma in T10. Paravertebral soft tissues: Negative. Thoracic cord: No focal cord signal abnormality or lesion. Conus: Negative, terminates at T12-L1. Disc spaces: There is mild disc desiccation of the thoracic spine with mild anterior bony spurring i n the midthoracic spine, and mild facet hypertrophy. Small central disc protrusion at T5-6, without o ther focal disc herniation. There is no significant central canal or foraminal stenosis. IMPRESSION: 1. Mild degenerative disc disease and facet arthropathy of the thoracic spine is worst at T5-6. No si gnificant spinal stenosis or foraminal stenosis. 2. No thoracic cord lesion or edema. Report Dictated By: Rola Garza MD at 10/11/2018 10:26 AM Report E-Signed By: Rola Garza MD at 10/11/2018 10:31 AM WSN:[id number]
[2018-10-11] MEDS: ISOSORBIDE MONONITR 30MG TABCR PO SCH (11:12)
[2018-10-11] MEDS: LISINOPRIL 20 MG TAB PO SCH (11:12)
[2018-10-11] MEDS: amLODIPine BESYL(*) 5 MG TAB PO SCH (11:13)
[2018-10-11] MEDS: DOCUSATE SODIUM 100 MG CAP PO SCH ×2 (11:13→20:44)
[2018-10-11] MEDS: CARVEDILOL 25 MG TABLET PO SCH ×2 (11:15→17:39)
[2018-10-11] MEDS: GABAPENTIN 300 MG CAP PO SCH ×3 (11:16→20:45)
[2018-10-11 12:33] VITALS: BP 157/94
--- NOTE | 2018-10-11 13:22 | Hospitalist Progress Note ---
Subjective Progress Notes Subjective 68M admitted with R sided weakness, HORACIO overnight. Weakness has resolved, no new concern this am. Patient Complains of: Neurological: No: Weakness Cardiovascular: No: Chest Pain Gastrointestinal: No Nausea, No Vomiting Physical Exam Vital Signs Date Time Temp Pulse Resp B/P (MAP) Pulse Ox O2 Delivery O2 Flow Rate FiO2 10/11/18 12:33 98.2 67 12 157/94 (115) 93 Room Air 10/11/18 08:25 1.0 Intake and Output 10/11/18 07:02 Intake Total 2334 ml Output Total 700 ml Balance 1634 ml Intake Oral 800 ml IV Total 1534 ml Output Urine Total 700 ml General Appearance: Alert, Awake, No Acute Distress, Afebrile Neuro: No Gross deficits Cardiovascular: Normal Rhythm & Peripheral Pulses Respiratory: No Respiratory Distress Musculoskeletal: No Weakness/Pain Extremities: Soft and Non Tender, Warm, Pulses, Perfused; No Edema Result Diagram: 10/11/18 0756 10/11/18 0756 Assessment and Plan Problems: (1) Neurologic abnormality Status: Acute Assessment & Plan: The patient presents with multiple neurologic issues. Brain MRI from 10/09 is unremarkable. Lumbar MRI shows a hematoma but no evidence of cord compromise. His lumbar puncture from the ER was traumatic and he did have many RBCs with some WBCs. His CSF protein is high at 90. Gram stain of the CSF shows rare gram positive cocci, almost certainly contaminant. Viral, bacterial and fungal cultures are pending. HSV studies pending as well. Neurology in [place] was consulted and recommended imaging of the thoracic and cervical spines. MRIs pending. The patient is also on a high dose of gabapentin. His symptoms improved as he sat in the ER without his usual medications. Will wean down his gabapentin and hold Tramadol which can increase the side effects of gabapentin. Will get ECHO with bubble and carotid imaging to complete TIA work up. (2) CAD (coronary artery disease) Status: Chronic Assessment & Plan: Continue carvedilol and lisinopril. He is on Plavix as well. Will hold for now due to LP and hematoma noted on lumbar MRI. (3) Hyperlipidemia Status: Chronic Assessment & Plan: Continue atorvastatin 40mg at HS. (4) Hypertension Status: Chronic Assessment & Plan: Continue amlodipine, carvedilol and lisinopril. Exam Sepsis Risk: No Definite Risk ERNANDEZ JOSEPHINE RÍOS DO Oct 11, 2018 13:22
[2018-10-11] MEDS ORDERED: traMADol 50 MG TAB PO PRN (13:30)
--- NOTE | 2018-10-11 15:15 | RADIOLOGY IMAGING REPORT ---
FACILITY: [facility] PATIENT NAME: Kenny Garcia : 1950 MR: [id number] V: [id number] EXAM DATE: ORDERING PHYSICIAN: JOSEPHINE RÍOS TECHNOLOGIST: Location: [facility] - [place] Patient: Kenny Garcia : 1950 Visit/Account:[id number] Date of Sevice: 10/11/2018 CAROTID HISTORY: TIA Carotid ultrasound Indication: TIA Comparison:None available Findings: On the right : Peak systolic velocity of the right common carotid artery is 67 cm/s Peak systolic velocity of the right internal carotid artery is 47 cm/s There is normal antegrade flow of the right vertebral artery. The right ICA/CCA ratio is 0.71 There is mild soft//mixed calcific fibrous plaque noted in the at the distal common carotid extending into the carotid bulb. No flow-limiting lesions identified. On the left: Peak systolic velocity of the left common carotid artery is 84 cm/s Peak systolic velocity of the left internal carotid artery is 82 cm/s There is normal antegrade flow of the left vertebral artery. The left ICA/CCA ratio is 0.53 Mixed fibrotic/calcific plaque seen in the proximal left common carotid and within the left carotid b ulb with no significant flow-limiting lesions identified. IMPRESSION: 1. No hemodynamically significant stenosis of the bilateral common carotid arteries and bilateral int ernal carotid arteries as above. Velocity criteria are extrapolated from diameter data as defined by the Society of Radiologists in Ul trasound Consensus Conference Radiology 2003:229:340-346 Report Dictated By: Yoav Sharp MD at 10/11/2018 2:51 PM Report E-Signed By: Yoav Sharp MD at 10/11/2018 3:08 PM WSN:[email or web address]
[2018-10-11 15:37] VITALS: BP 154/91
[2018-10-11 19:03] VITALS: BP 134/85
[2018-10-11] MEDS: ATORVASTATIN 40 MG TAB PO SCH (20:44)
[2018-10-11] MEDS: MELATONIN 3 MG TAB PO PRN (21:29)
[2018-10-11] MEDS ORDERED: ACYCLOVIR IVPB SCH (23:00)
[2018-10-11] MEDS ORDERED: NS 0.9% IVPB SCH (23:00)
[2018-10-12 03:35] VITALS: BP 127/83
[2018-10-12] MEDS: PANTOPRAZOLE SOD 40 MG TABEC PO SCH (05:39)
[2018-10-12 06:52] VITALS: BP 135/86
[2018-10-12] MEDS: DOCUSATE SODIUM 100 MG CAP PO SCH ×2 (08:18→21:10)
[2018-10-12] MEDS: ISOSORBIDE MONONITR 30MG TABCR PO SCH (08:18)
[2018-10-12] MEDS: amLODIPine BESYL(*) 5 MG TAB PO SCH (08:18)
[2018-10-12] MEDS: LISINOPRIL 20 MG TAB PO SCH (08:18)
[2018-10-12] MEDS: GABAPENTIN 300 MG CAP PO SCH ×2 (08:18→21:10)
[2018-10-12] MEDS: CARVEDILOL 25 MG TABLET PO SCH ×2 (08:18→17:53)
[2018-10-12 11:03] VITALS: Ht 180.3 cm; Wt 87.3 kg
[2018-10-12 11:15] VITALS: BP 150/92
--- NOTE | 2018-10-12 12:09 | Hospitalist Progress Note ---
Subjective Progress Notes Subjective Overall feeling much better. Not shaky, word finding is better, and legs are much stronger. Physical Exam Vital Signs Date Time Temp Pulse Resp B/P (MAP) Pulse Ox O2 Delivery O2 Flow Rate FiO2 10/12/18 11:15 91 10/12/18 11:15 98.1 64 24 150/92 (111) Room Air 10/11/18 08:25 1.0 Intake and Output 10/12/18 07:02 Intake Total 2130 ml Output Total 1975 ml Balance 155 ml Intake Oral 1130 ml IV Total 1000 ml Output Urine Total 1975 ml # Voids 10 # Bowel Movements 2 General Appearance: Alert, Awake, No Acute Distress Neuro: Other (R plantar flexion weakness (baseline). Otherwise equal strength in UE and normal senation to light touch in LE. No facial droop.) Result Diagram: 10/11/18 0756 10/11/18 0756 Assessment and Plan Problems: (1) Neurologic abnormality Status: Acute Assessment & Plan: The patient presented with blurred vision, balance problems, lower extremity weakness, word finding problems, and arms/legs shaking that progressively worsened for a couple days prior to admission. Brain MRI from 10/09 is unremarkable. Lumbar MRI shows a hematoma but no evidence of cord compromise. His lumbar puncture from the ER was traumatic and he did have many RBCs with some WBCs. His CSF protein is high at 90. Gram stain of the CSF shows rare gram positive cocci, almost certainly contaminant. Viral, bacterial and fungal cultures are pending. HSV studies pending as well. Neurology in [place] was consulted and recommended imaging of the thoracic and cervical spines which showed severe spinal stenosis at C3-4 and mod-severe bilateral foraminal stenosis. The patient was also on a high dose of gabapentin. His symptoms improved as he sat in the ER without his usual medications. Overall, doing much better. Likely, gabapentin toxicity, but it is unclear why he developed problems now because he has been on that high of a dose for about a year. Now on 600mg bid. Will ask OT/PT to see. (2) CAD (coronary artery disease) Status: Chronic Assessment & Plan: Continue carvedilol and lisinopril. He is on Plavix as well. Will hold for now due to LP and hematoma noted on lumbar MRI. Dr. Ratliff to advise about Plavix use. (3) Hyperlipidemia Status: Chronic Assessment & Plan: Continue atorvastatin 40mg at HS. (4) Hypertension Status: Chronic Assessment & Plan: Continue amlodipine, carvedilol and lisinopril. Exam Sepsis Risk: No Definite Risk MAME VOSS MD Oct 12, 2018 12:09
--- NOTE | 2018-10-12 15:41 | NUR ---
Occupational Therapy Impression Initial OT evaluation completed. SBA ambulation x400ft with no assistive device. Independent toileting standing. Independent LB dressing. Independent UB/LB dressing. Pt reports feeling much improved with no concerns for OT in regards to discharge home. No further skilled OT needs at this time. Occupational Therapy Goals Patient's Goal
--- NOTE | 2018-10-12 17:01 | NUR ---
Physical Therapy Impression Pt demos modified indep with bed mobility and transfers. Pt is noted to have a path deviation when he first rises from sitting and with turns. Pt declines use of quad cane or walker provided by PT. Pt then completed up/down 11 steps with rail and SBA, using foot over foot pattern. As pt fatigues, during descent on stairs, he demos decreased dorsiflexion on R) foot and increased risk of fall related to this. Pt cautioned to be aware of mobility and balance and use railing appropriately. Pt still declines to utilize an assistive device. Pt cleared for d/c home when medically appropriate, with recommendation from PT to utilize quad cane or walking stick to assist with safer mobility until he is able to follow up with out pt rehab as prescribed by his back surgeon, Dr. Ratliff. Physical Therapy Goals No further visits planned; f/u with out pt PT Patient's Goals
[2018-10-12 18:54] VITALS: BP 149/89
[2018-10-12] MEDS: ATORVASTATIN 40 MG TAB PO SCH (21:10)
[2018-10-12] MEDS: MELATONIN 3 MG TAB PO PRN (21:10)
[2018-10-13 01:06] VITALS: BP 143/93
[2018-10-13] MEDS: PANTOPRAZOLE SOD 40 MG TABEC PO SCH (05:44)
[2018-10-13 06:50] VITALS: BP 147/100
[2018-10-13] MEDS: LISINOPRIL 20 MG TAB PO SCH (08:42)
[2018-10-13] MEDS: ISOSORBIDE MONONITR 30MG TABCR PO SCH (08:42)
[2018-10-13] MEDS: DOCUSATE SODIUM 100 MG CAP PO SCH (08:42)
[2018-10-13] MEDS: amLODIPine BESYL(*) 5 MG TAB PO SCH (08:42)
[2018-10-13] MEDS: GABAPENTIN 300 MG CAP PO SCH (08:42)
[2018-10-13] MEDS: CARVEDILOL 25 MG TABLET PO SCH (08:42)
[2018-10-13] MEDS ORDERED: CLOPIDOGREL BISULFATE 75MG TAB PO SCH (09:00)
[2018-10-13] MEDS ORDERED: GABA-549 PO (09:58)
--- NOTE | 2018-10-13 10:01 | Hospitalist Depart ---
Discharge Summary Reason for Hosp/Final Diag: (1) Neurologic abnormality Status: Acute Hospital Course & Plan: The patient presented with blurred vision, balance problems, lower extremity weakness, word finding problems, and arms/legs shaking that progressively worsened for a couple days prior to admission. Brain MRI 10/09 is unremarkable. Lumbar MRI shows a hematoma, but no evidence of cord compromise. His lumbar puncture from the ER was traumatic and he did have a fair amount of RBCs with some WBCs. His CSF protein is moderately high at 90. Gram stain of the CSF showed rare gram positive cocci, but culture negative so almost certainly contaminant. Neurology in [place] was consulted and recommended imaging of the thoracic and cervical spines which showed severe spinal stenosis at C3-4 and mod-severe bilateral foraminal stenosis. The patient was also on a high dose of gabapentin (1200mg TID). His symptoms improved as he sat in the ER without his usual medications. Overall, doing much better. 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 We did reduce his dose and he is now on gabapentin 600mg BID. OT/PT did see him during his stay and he was functioning well. They did recommend he continue follow up with outpatient therapy as [facility]. He will need close follow up with his primary care physician (Dr. Oropeza) and spine surgeon (Dr. Ratliff). (2) CAD (coronary artery disease) Status: Chronic Hospital Course & Plan: Continue carvedilol and lisinopril. His Plavix was initially held due to LP and hematoma noted on lumbar MRI. He has now resumed his usual Plavix. (3) Hyperlipidemia Status: Chronic Hospital Course & Plan: Continue atorvastatin 40mg at HS. (4) Hypertension Status: Chronic Hospital Course & Plan: Continue amlodipine, carvedilol and lisinopril. Departure Weight (Pounds): 192 Weight (Ounces): 6.0 Result Diagram: 10/11/18 0756 10/11/18 0756 Item Value Date Time CSF Total Protein 90 mg/dl H 10/10/18 1653 CSF Lactate Dehydrogenase 110 U/L 10/10/18 1653 CSF Glucose 68 mg/dl 10/10/18 1653 CSF RBC 497 /mm3 10/10/18 1653 CSF WBC 9 /mm3 H 10/10/18 1653 CSF Color Colorless 10/10/18 1653 CSF Appearance Clear 10/10/18 1653 CSF Cryptococcus Antigen Negative 10/10/18 1653 Plasma Cortisol 13.2 ug/dL 10/11/18 0756 Thyroid Stimulating Hormone (TSH) 2.75 uIU/ml 10/11/18 0756 Albumin 3.7 g/dl 10/10/18 1353 Total Protein 6.5 g/dl 10/10/18 1353 Alkaline Phosphatase 114 U/L 10/10/18 1353 Alanine Aminotransferase (ALT/SGPT) 56 U/L 10/10/18 1353 Aspartate Amino Transf (AST/SGOT) 42 U/L H 10/10/18 1353 Total Bilirubin 0.8 mg/dl 10/10/18 1353 Calcium Level 8.8 mg/dl 10/10/18 1353 Random Glucose 144 mg/dl H 10/10/18 1353 Glomerular Filtration Rate Calc > 60.0 10/10/18 1353 Creatinine 0.70 mg/dl 10/10/18 1353 Blood Urea Nitrogen 14 mg/dl 10/10/18 1353 Chloride Level 104 mmol/L 10/10/18 1353 Carbon Dioxide Level 26 mmol/L 10/10/18 1353 Potassium Level 4.1 mmol/L 10/10/18 1353 Sodium Level 139 mmol/L 10/10/18 1353 Magnesium Level 1.7 mg/dl 10/10/18 1353 White Blood Count 4.8 k/uL 10/10/18 1353 Hemoglobin 14.2 g/dL 10/10/18 1353 Hematocrit 40.9 % L 10/10/18 1353 Platelet Count 153 K/uL 10/10/18 1353 [facility]IVE* [address] [place] [address] PANCHITO FATIMA M.D., DIRECTOR OF LABORATORY SERVICES JOSEPHINE BROUSSARD M.D., PATHOLOGIST RUN DATE: 10/13/18 Specimen Inquiry Report PAGE 1 RUN TIME: 0825 PATIENT: KENNY MARIEE ACCT: [id number] LOC: [facility] U: [id number] AGE/SX: 68/M ROOM: 2270 RE10/10/[address]: PACO MCGHEE MD : 1950 BED: 270 DIS: STATUS: ADM IN TLOC: SPEC #: [id number] EDWIGE: 10/10/18 STATUS: COMP REQ #: [id number] RECD: 10/10/18 [facility] DR: SANDRA RUANO SOURCE: CSF ENTR: 10/10/[address]: SHANTHI OROPEZA MD SPDC: ORDERED: CULT CSF & GS Procedure Result Verified GRAM STAIN Final 10/10/18-184 RARE GRAM POSITIVE COCCI CSF CULTURE Final 10/13/18-824 No growth after 3 days Imaging PATIENT NAME: Kenny Mariee : 1950 MR: [id number] V: [id number] EXAM DATE: ORDERING PHYSICIAN: PACO MCGHEE TECHNOLOGIST: Location: [facility] Patient: Kenny Mariee : 1950 Visit/Account:[id number] Date of Sevice: 10/11/2018 EXAMINATION: MRI thoracic spine without IV contrast HISTORY: Right-sided weakness, recent normal brain MRI. Recent laminectomy 09/16/2018, neurologic changes. COMPARISON: CT head and brain MRI, and lumbar spine MRI from 10/09/2018. TECHNIQUE: Multi-planar, multi-sequence thoracic spine MRI was performed without intravenous contrast administration. FINDINGS: Alignment: Mild leftward curvature of the thoracic spine without focal listhesis. Vertebral marrow signal: There are a few small Schmorl's nodes and a benign hemangioma in T10. Paravertebral soft tissues: Negative. Thoracic cord: No focal cord signal abnormality or lesion. Conus: Negative, terminates at T12-L1. Disc spaces: There is mild disc desiccation of the thoracic spine with mild anterior bony spurring in the midthoracic spine, and mild facet hypertrophy. Small central disc protrusion at T5-6, without other focal disc herniation. There is no significant central canal or foraminal stenosis. IMPRESSION: 1. Mild degenerative disc disease and facet arthropathy of the thoracic spine is worst at T5-6. No significant spinal stenosis or foraminal stenosis. 2. No thoracic cord lesion or edema. Report Dictated By: Rola Garza MD at 10/11/2018 10:26 AM Report E-Signed By: Rola Gazra MD at 10/11/2018 10:31 AM WSN:[id number] PATIENT NAME: Kenny Mariee : 1950 MR: [id number] V: [id number] EXAM DATE: ORDERING PHYSICIAN: PACO MCGHEE TECHNOLOGIST: Location: [facility] Patient: Kenny Mariee : 1950 Visit/Account:[id number] Date of Sevice: 10/11/2018 EXAMINATION: MRI cervical spine without IV contrast HISTORY: Right-sided weakness, normal MRI of the brain. COMPARISON: CT head and brain MRI from 10/09/2018. TECHNIQUE: Multi-planar, multi-sequence cervical spine MRI was performed without intravenous contrast administration. FINDINGS: Alignment: Grade 1 retrolisthesis at C3-4 measuring 2 mm. Vertebral marrow signal: Mild fatty degenerative endplate changes at C3-4 and a few small Schmorl's nodes. Cranio-cervical junction: Negative. Visualized posterior fossa: Negative. Soft tissues: Negative. Cervical cord: Negative. Disc spaces: C1-2: Negative. C2-3: Small posterior osteophyte disc complex, bilateral facet hypertrophy and mild ligamentum flavum laxity. Moderate central canal stenosis without foraminal stenosis. C3-4: Mild disc space narrowing with a broad-based posterior osteophyte disc complex, bilateral uncovertebral and facet hypertrophy. Severe central canal stenosis with mild mass effect on the cervical cord. The AP diameter of the spinal canal measures 6 mm. Moderate to severe bilateral foraminal stenosis. C4-5: Broad-based posterior osteophyte disc complex, mild bilateral uncovertebral and facet hypertrophy. Mild central canal stenosis and moderate to severe left foraminal stenosis. C5-6: Mild disc space narrowing with anterior bony spurring, a broad-based posterior osteophyte disc complex, mild bilateral uncovertebral and facet hypertrophy. Moderate central canal stenosis and moderate to severe bilateral foraminal stenosis. C6-7: Broad-based posterior osteophyte disc complex eccentric to the left with anterior bony spurring and mild bilateral uncovertebral hypertrophy. Mild bila teral foraminal stenosis without significant central canal stenosis. C7-T1: Mild bilateral facet hypertrophy without significant central canal or foraminal stenosis. Upper thoracic spine: Negative. IMPRESSION: 1. Multilevel degenerative disc disease, facet and uncovertebral arthropathy is worst at C3-4 where there is severe spinal stenosis and moderate to severe bilateral foraminal stenosis. Please see the findings for description of individual level disease. 2. Grade 1 degenerative retrolisthesis at C3-4. Report Dictated By: Rola Garza MD at 10/11/2018 10:20 AM Report E-Signed By: Rola Garza MD at 10/11/2018 10:25 AM WSN:[id number] PATIENT NAME: Kenny Mariee : 1950 MR: [id number] V: [id number] EXAM DATE: ORDERING PHYSICIAN: JOSEPHINE RÍOS TECHNOLOGIST: Location: [facility] Patient: Kenny Mariee : 1950 Visit/Account:[id number] Date of Sevice: 10/11/2018 CAROTID HISTORY: TIA Carotid ultrasound Indication: TIA Comparison:None available Findings: On the right : Peak systolic velocity of the right common carotid artery is 67 cm/s Peak systolic velocity of the right internal carotid artery is 47 cm/s There is normal antegrade flow of the right vertebral artery. The right ICA/CCA ratio is 0.71 There is mild soft//mixed calcific fibrous plaque noted in the at the distal common carotid extending into the carotid bulb. No flow-limiting lesions identified. On the left: Peak systolic velocity of the left common carotid artery is 84 cm/s Peak systolic velocity of the left internal carotid artery is 82 cm/s There is normal antegrade flow of the left vertebral artery. The left ICA/CCA ratio is 0.53 Mixed fibrotic/calcific plaque seen in the proximal left common carotid and within the left carotid bulb with no significant flow-limiting lesions identified. IMPRESSION: 1. No hemodynamically significant stenosis of the bilateral common carotid arteries and bilateral internal carotid arteries as above. Velocity criteria are extrapolated from diameter data as defined by the Society of Radiologists in Ultrasound Consensus Conference Radiology 2003:229:340-346 Report Dictated By: Yoav Sharp MD at 10/11/2018 2:51 PM Report E-Signed By: Yoav Sharp MD at 10/11/2018 3:08 PM WSN:[id number] Condition: Improved Discharge: Home, Self Care PT/OT Follow Up For: PT For Surgical Rehab Time Spent: > 30 min Discharge Instructions Home Meds Active Scripts Gabapentin (GABAPENTIN) 300 Mg Capsule, 600 MG PO BID for 30 Days, #120 CAPSULE 1 Refill Prov:SOLEDAD MCGHEE MD 10/13/18 Reported Medications Carvedilol (CARVEDILOL) 25 Mg Tablet, 1 TAB PO BID 10/10/18 Amlodipine Besylate (AMLODIPINE BESYLATE) 10 Mg Tablet, 1 TAB PO DAILY 10/10/18 Isosorbide Mononitrate (ISOSORBIDE MONONITRATE ER) 30 Mg Tab.er.24h, 1 TAB PO DAILY 10/10/18 Lisinopril (LISINOPRIL) 40 Mg Tablet, 1 TAB PO DAILY 10/10/18 Docusate Calcium (SURFAK) 240 Mg Capsule, 240 MG PO DAILY, #9 CAPSULE 09/17/18 Tramadol Hcl (TRAMADOL HCL) 50 Mg Tablet, 1-2 TAB PO QID PRN for PAIN, TAB 09/10/18 Atorvastatin Calcium (ATORVASTATIN CALCIUM) 40 Mg Tablet, 1 TAB PO QAM, TAB 09/03/17 Esomeprazole Magnesium (NEXIUM) 40 Mg Capsule.dr, 1 CAP PO QAM, CAP 08/26/17 Clopidogrel Bisulfate (CLOPIDOGREL) 75 Mg Tablet, 1 TAB PO QDAY, TAB Resume Friday09/20/18. 01/09/14 Discontinued Reported Medications Gabapentin (GABAPENTIN) 400 Mg Capsule, 3 CAP PO TID, CAPSULE 09/03/17 Celecoxib (CELEBREX) 200 Mg Capsule, 200 MG PO QAM, CAPSULE 08/26/17 Hydrochlorothiazide (HYDROCHLOROTHIAZIDE) 25 Mg Tablet, 0.5 TAB PO QDAY TAKE ONE TABLET BY MOUTH EVERY DAY 01/09/14 Diazepam (VALIUM) 5 Mg Tablet, 5 MG PO Q8H, #16 TAB 0 Refills 09/17/18 Oxycodone Hcl/Acetaminophen (PERCOCET 5-325 MG TABLET) 1 Each Tablet, 1-2 EACH PO Q6H PRN for PAIN, #36 TAB 0 Refills 09/17/18 Lisinopril (LISINOPRIL) 20 Mg Tablet, 40 MG PO QAM, TAB 09/03/17 Isosorbide Mononitrate (ISOSORBIDE MONONITRATE) 20 Mg Tablet, 30 MG PO QAM 01/09/14 Carvedilol (Coreg) 6.25 Mg Tab, 12.5 MG PO BID 07/16/11 Diet: Regular, Low Cholesterol & Sat Fat Activity: As Tolerated, No Exertion Special Instructions: Follow up with Dr. Oropeza in next 1-2 weeks. or sooner if any problems. Follow up with Dr. Ratliff as planned in next 1-2 weeks. Follow up with Physical Therapy at [facility] in next few days. Return to ER if any problems. Copies to: SHANTHI OROPEZA MD; MICHELLE RATLIFF MD ; Venous Thromboembolism Antithrombotics Is Pt On Any Antithrombotics?: Yes SOLEDAD MCGHEE MD Oct 13, 2018 10:01
== END 2018-10-13 12:15 | disposition home or self-care (01) | DRG 92 ==
LOC: ER 13:32 → ICU 18:27 → MED 18:27
PROVIDERS: ADMIT Internal Medicine; ATTEND Internal Medicine
PROC: 009U3ZX Drainage of Spinal Canal, Percutaneous Approach, Diagnostic (ICD-10-PCS; principal; 2018-10-10)
DX: G92 Toxic encephalopathy (principal); R47.01 Aphasia; T42.6X1A Poisoning by other antiepileptic and sedative-hypnotic drugs, accidental (unintentional), initial encounter; I25.10 Atherosclerotic heart disease of native coronary artery without angina pectoris; I10 Essential (primary) hypertension; R53.1 Weakness; S30.0XXA Contusion of lower back and pelvis, initial encounter; E78.5 Hyperlipidemia, unspecified; M48.02 Spinal stenosis, cervical region; K21.9 Gastro-esophageal reflux disease without esophagitis; R32 Unspecified urinary incontinence; F17.220 Nicotine dependence, chewing tobacco, uncomplicated; H91.93 Unspecified hearing loss, bilateral; Z88.8 Allergy status to other drugs, medicaments and biological substances; I25.2 Old myocardial infarction; Z95.5 Presence of coronary angioplasty implant and graft
CPT/HCPCS: 36415; 70450; 70551; 72141; 72146; 72148; 80320; 82040; 82247; 82310; 82374; 82435; 82533; 82565; 82945; 82947; 83615; 83735; 84075; 84132; 84155; 84157; 84295; 84443; 84450; 84460; 84484; 84520; 85025; 85610; 85730; 86694; 87070; 87205; 87252; 87327; 89050; 93005; 93306; 93880; 96360; 97161; 97165; 99284; 99285; J0133; J0692; J1170; J3370; J7030; J7040; J7050